=== PATIENT | male | born 1985 | race Caucasian/White ===

== ENCOUNTER 2019-06-01 23:20 | Emergency (ER) | payer OTHER ==
[2019-06-01] MEDS ORDERED: NA CHLORIDE 0.9% 1,000 ML ONE (23:39)
[2019-06-01] MEDS ORDERED: ONDANSETRON 4 MG/2 ML VIAL ONE (23:42)
[2019-06-01 23:59] LABS: Absolute Lymphocytes (CBC) 0.9 K/uL (0.7-4.9); Basophils % 0.3 % (0-1.3); Hematocrit 44.4 % (39.6-49.0); Lymphocytes % 11.8 % (15.3-44.8); MPV 7.8 fL (7.6-11.3)
[2019-06-02 00:10] LABS: ALT/SGPT 61 U/L (12-78); AST/SGOT 27 U/L (15-37); Albumin 4.3 g/dL (3.4-5.0); Alkaline Phosphatase 78 U/L (45-117); BUN Blood Urea Nitrogen 19 mg/dL (7-18); Bicarbonate 30 mmol/L (21-32); Bilirubin Direct 0.3 mg/dL (0-0.2); Bilirubin Total 1.4 mg/dL (0.2-1.0); Glucose Level 105 mg/dL (74-106); Lipase 111 U/L (73-393); Potassium 3.6 mmol/L (3.5-5.1); Protein, Total 7.8 g/dL (6.4-8.2); Sodium Level 141 mmol/L (136-145)
[2019-06-02 00:57] LABS: Urine Blood NEGATIVE (NEG); Urine Glucose NEGATIVE (NEG); Urine Protein NEGATIVE (NEG); Urine Specific Gravity 1.025 (1.005-1.030)
[2019-06-02 00:59] LABS: Calcium Oxalate Crystals- Ur MODERATE (NONE SEEN); Urine Bacteria <20 /HPF (NONE SEEN); Urine Culture Reflex Order NOT NEEDED; Urine RBC NONE SEEN /HPF (NONE SEEN); Urine Urothelial Cells <5 /HPF (NONE SEEN)
[2019-06-02] MEDS ORDERED: FENTANYL CITR 100 MCG/2 ML ONE (01:16)
--- NOTE | 2019-06-02 01:46 | ER ---
Nurse's Notes [facility] Name: Kain Short Age: 33 yrs Sex: Male : 1985 Arrival Date: 06/01/2019 Time: 23:24 Bed 18 Private MD: Diagnosis: Unspecified renal colic;Lower abdominal pain, unspecified Presentation: 06/01 23:30 Presenting complaint: Left flank pain and N/V/D today. Not tolerating fluids. hb Transition of care: patient was not received from another setting of care. Onset of symptoms was June 01, 2019. Risk Assessment: Do you want to hurt yourself or someone else? Patient reports no desire to harm self or others. Initial Sepsis Screen: Does the patient meet any 2 criteria? No. Patient's initial sepsis screen is negative. Does the patient have a suspected source of infection? No. Patient's initial sepsis screen is negative. Care prior to arrival: None. 23:30 Method Of Arrival: Ambulatory hb 23:30 Acuity: KARTHIK 3 hb Triage Assessment: 23:34 General: Appears in no apparent distress. Behavior is calm, cooperative. Pain: Pain hb currently is 9 out of 10 on a pain scale. Historical: - Allergies: 23:32 Adderall; hb 23:32 Reglan; hb 23:32 tramadol; hb 23:32 Wellbutrin; hb - PMHx: 23:32 Diverticulitis; Kidney stones; hb - PSHx: 23:32 jaw; hb - Immunization history:: Adult Immunizations up to date. - Social history:: Smoking status: Patient reports the use of cigarette tobacco products, denies chronic smoking, but will smoke occasionally. - Ebola Screening: : No symptoms or risks identified at this time. Screenin:33 Abuse screen: Denies threats or abuse. Denies injuries from another. Nutritional hb screening: No deficits noted. Tuberculosis screening: No symptoms or risk factors identified. Fall Risk None identified. Assessment: 23:40 General: Appears in no apparent distress. Behavior is calm, cooperative. Pain: Pain hb currently is 9 out of 10 on a pain scale. Neuro: Level of Consciousness is awake, alert, obeys commands, Oriented to person, place, time, situation. Cardiovascular: Capillary refill < 3 seconds Patient's skin is warm and dry. Respiratory: Airway is patent Respiratory effort is even, unlabored, Respiratory pattern is regular, symmetrical, Breath sounds are clear bilaterally. GI: Reports diarrhea, nausea. : No signs and/or symptoms were reported regarding the genitourinary system. EENT: No signs and/or symptoms were reported regarding the EENT system. Derm: Skin is pink, warm \T\ dry. Musculoskeletal: No signs and/or symptoms reported regarding the musculoskeletal system. 06/02 00:32 Reassessment: Patient appears in no apparent distress at this time. Patient and/or hb family updated on plan of care and expected duration. Pain level reassessed. Patient is alert, oriented x 3, equal unlabored respirations, skin warm/dry/pink. 01:27 Reassessment: Patient appears in no apparent distress at this time. Patient and/or hb family updated on plan of care and expected duration. Pain level reassessed. Patient is alert, oriented x 3, equal unlabored respirations, skin warm/dry/pink. 02:02 Reassessment: Patient appears in no apparent distress at this time. Patient and/or hb family updated on plan of care and expected duration. Pain level reassessed. Patient is alert, oriented x 3, equal unlabored respirations, skin warm/dry/pink. Vital Signs: 06/01 23:32 BP 109 / 68; Pulse 75; Resp 16; Temp 98(O); Pulse Ox 95% on R/A; Weight 58.97 kg; hb Height 5 ft. 7 in. (170.18 cm); Pain 9/10; 06/02 00:44 BP 95 / 63; Pulse 66; Resp 15; Pulse Ox 97% on R/A; Pain 6/10; hb 01:28 BP 94 / 60; Pulse 68; Resp 14; Pulse Ox 100% on R/A; hb 06/01 23:32 Body Mass Index 20.36 (58.97 kg, 170.18 cm) ED Course: 06/01 23:24 Patient arrived in ED. es 23:30 Lori Bose FNP-C is PHCP. snw 23:30 Baldemar Barraza MD is Attending Physician. snw 23:31 Triage completed. hb 23:32 Arm band placed on. hb 23:33 Patient has correct armband on for positive identification. Bed in low position. Call light in reach. 23:35 Angela Lloyd, RN is Primary Nurse. hb 06/02 00:19 CT Stone Protocol In Process Unspecified. EDMS 02:12 No provider procedures requiring assistance completed. IV discontinued, intact, hb bleeding controlled, No redness/swelling at site. Pressure dressing applied. Administered Medications: 06/01 23:49 Drug: NS 0.9% 1000 ml Route: IV; Rate: 1 bolus; Site: left antecubital; hb 06/02 00:42 Follow up: Response: No adverse reaction; IV Status: Completed infusion; IV Intake: hb 1000ml 06/01 23:49 Drug: Zofran 4 mg Route: IVP; Site: left antecubital; hb 06/02 00:39 Follow up: Response: No adverse reaction; Vomiting decreased hb 01:17 Drug: fentaNYL (PF) 25 mcg Route: IVP; Site: left antecubital; hb 01:50 Follow up: Response: No adverse reaction; Pain is decreased hb Intake: 00:42 IV: 1000ml; Total: 1000ml. hb Outcome: 01:45 Discharge ordered by MD. snw 02:12 Discharged to home ambulatory, with significant other. hb 02:12 Condition: stable 02:12 Discharge instructions given to patient, significant other, Instructed on discharge instructions, follow up and referral plans. medication usage, Demonstrated understanding of instructions, follow-up care, medications, Prescriptions given X 2. 02:13 Patient left the ED. hb Signatures: Dispatcher [employer] EDPA Lori Bose, GRINDER OPERATOR TOOL-C GRINDER OPERATOR TOOL-CsnJeannie Mosley Heather, RN RN hb Corrections: (The following items were deleted from the chart) 06/01 23:34 23:34 GI: Reports hb hb
--- NOTE | 2019-06-02 01:46 | EDPHYS ---
Physician Documentation [facility] Name: Kain Short Age: 33 yrs Sex: Male : 1985 Arrival Date: 06/01/2019 Time: 23:24 Bed 18 Private MD: ED Physician Baldemar Barraza HPI: 06/01 23:39 This 33 yrs old Male presents to ER via Ambulatory with complaints of snw Nausea/Vomiting, Flank Pain. 23:39 The patient presents to the emergency department with nausea, vomiting, abdominal pain, snw of the left upper quadrant and left lower quadrant, described as sharp. Onset: The symptoms/episode began/occurred suddenly, today. Possible causes: unknown. The symptoms are aggravated by nothing. Associated signs and symptoms: Pertinent positives: nausea, vomiting. Severity of symptoms: At their worst the symptoms were moderate. The patient has experienced a previous episode. The patient has not recently seen a physician. Historical: - Allergies: 23:32 Adderall; hb 23:32 Reglan; hb 23:32 tramadol; hb 23:32 Wellbutrin; hb - PMHx: 23:32 Diverticulitis; Kidney stones; hb - PSHx: 23:32 jaw; hb - Immunization history:: Adult Immunizations up to date. - Social history:: Smoking status: Patient reports the use of cigarette tobacco products, denies chronic smoking, but will smoke occasionally. - Ebola Screening: : No symptoms or risks identified at this time. ROS: 23:39 Constitutional: Negative for fever, chills, and weight loss, Eyes: Negative for injury, snw pain, redness, and discharge, ENT: Negative for injury, pain, and discharge, Neck: Negative for injury, pain, and swelling, Cardiovascular: Negative for chest pain, palpitations, and edema, Respiratory: Negative for shortness of breath, cough, wheezing, and pleuritic chest pain. 23:39 : Negative for injury, bleeding, discharge, and swelling, MS/Extremity: Negative for injury and deformity, Skin: Negative for injury, rash, and discoloration, Neuro: Negative for headache, weakness, numbness, tingling, and seizure, Psych: Negative for depression, anxiety, suicide ideation, homicidal ideation, and hallucinations. 23:39 Abdomen/GI: Positive for abdominal pain, nausea and vomiting. 23:39 Back: Positive for flank pain, on the left. Exam: 23:37 Constitutional: This is a well developed, well nourished patient who is awake, alert, snw and in no acute distress. Head/Face: Normocephalic, atraumatic. Eyes: Pupils equal round and reactive to light, extra-ocular motions intact. Lids and lashes normal. Conjunctiva and sclera are non-icteric and not injected. Cornea within normal limits. Periorbital areas with no swelling, redness, or edema. ENT: Nares patent. No nasal discharge, no septal abnormalities noted. Tympanic membranes are normal and external auditory canals are clear. Oropharynx with no redness, swelling, or masses, exudates, or evidence of obstruction, uvula midline. Mucous membranes moist. Neck: Trachea midline, no thyromegaly or masses palpated, and no cervical lymphadenopathy. Supple, full range of motion without nuchal rigidity, or vertebral point tenderness. No Meningismus. Chest/axilla: Normal chest wall appearance and motion. Nontender with no deformity. No lesions are appreciated. Cardiovascular: Regular rate and rhythm with a normal S1 and S2. No gallops, murmurs, or rubs. Normal PMI, no JVD. No pulse deficits. Respiratory: Lungs have equal breath sounds bilaterally, clear to auscultation and percussion. No rales, rhonchi or wheezes noted. No increased work of breathing, no retractions or nasal flaring. Skin: Warm, dry with normal turgor. Normal color with no rashes, no lesions, and no evidence of cellulitis. MS/ Extremity: Pulses equal, no cyanosis. Neurovascular intact. Full, normal range of motion. Neuro: Awake and alert, GCS 15, oriented to person, place, time, and situation. Cranial nerves II-XII grossly intact. Motor strength 5/5 in all extremities. Sensory grossly intact. Cerebellar exam normal. Normal gait. Psych: Awake, alert, with orientation to person, place and time. Behavior, mood, and affect are within normal limits. 23:37 Abdomen/GI: Inspection: abdomen appears normal, Bowel sounds: normal, Palpation: mild abdominal tenderness, in the left lower quadrant. 23:37 Back: pain, that is moderate, of the mid back area. Vital Signs: 23:32 BP 109 / 68; Pulse 75; Resp 16; Temp 98(O); Pulse Ox 95% on R/A; Weight 58.97 kg; hb Height 5 ft. 7 in. (170.18 cm); Pain 9/10; 06/02 00:44 BP 95 / 63; Pulse 66; Resp 15; Pulse Ox 97% on R/A; Pain 6/10; hb 01:28 BP 94 / 60; Pulse 68; Resp 14; Pulse Ox 100% on R/A; hb 06/01 23:32 Body Mass Index 20.36 (58.97 kg, 170.18 cm) hb MDM: 06/01 23:42 Patient medically screened. snw 06/02 01:47 Data reviewed: vital signs, nurses notes. Data interpreted: Pulse oximetry: on room air snw is 100 %. Interpretation: normal. Counseling: I had a detailed discussion with the patient and/or guardian regarding: the historical points, exam findings, and any diagnostic results supporting the discharge/admit diagnosis, lab results, radiology results, the need for outpatient follow up, to return to the emergency department if symptoms worsen or persist or if there are any questions or concerns that arise at home. Response to treatment: the patient's symptoms have markedly improved after treatment. Special discussion: Based on the patient's Hx, exam, and Dx evaluation, there is no indication for emergent surgery or inpatient Tx. It is understood by the patient/guardian that if the Sx's persist or worsen they need to return immediately for re-evaluation. Based on the history and exam findings, there is no indication for further emergent testing or inpatient evaluation. I discussed with the patient/guardian the need to see the primary care provider for further evaluation of the symptoms. 06/01 23:33 Order name: Basic Metabolic Panel; Complete Time: 00:12 snw 06/01 23:33 Order name: CBC with Diff; Complete Time: 00:04 snw 06/01 22:33 Order name: Hepatic Function; Complete Time: 00:12 snw 06/01 23:33 Order name: Lipase; Complete Time: 00:12 snw 06/01 23:33 Order name: Urine Microscopic Only; Complete Time: 01:11 snw 06/02 00:31 Order name: Urine Dipstick--Ancillary (enter results); Complete Time: 01:11 mw2 06/01 23:33 Order name: IV Saline Lock; Complete Time: 23:49 snw 06/01 23:33 Order name: Labs collected and sent; Complete Time: 23:49 snw 06/01 23:33 Order name: Urine Dipstick-Ancillary (obtain specimen); Complete Time: 00:25 snw 06/01 23:33 Order name: CT Stone Protocol snw Administered Medications: 06/01 23:49 Drug: NS 0.9% 1000 ml Route: IV; Rate: 1 bolus; Site: left antecubital; hb 06/02 00:42 Follow up: Response: No adverse reaction; IV Status: Completed infusion; IV Intake: hb 1000ml 06/01 23:49 Drug: Zofran 4 mg Route: IVP; Site: left antecubital; hb 06/02 00:39 Follow up: Response: No adverse reaction; Vomiting decreased hb 01:17 Drug: fentaNYL (PF) 25 mcg Route: IVP; Site: left antecubital; hb 01:50 Follow up: Response: No adverse reaction; Pain is decreased hb Disposition: 07:50 Co-signature as Attending Physician, Baldemar Barraza MD I agree with the assessment and jay plan of care. Disposition: 06/02/19 01:45 Discharged to Home. Impression: Unspecified renal colic, Lower abdominal pain, unspecified. - Condition is Stable. - Discharge Instructions: Abdominal Pain, Adult, Kidney Stones, Renal Colic, Dietary Guidelines to Help Prevent Kidney Stones, Rehydration, Adult, [place] Diet. - Prescriptions for Diclofenac Sodium 75 mg Oral Tablet Sustained Release - take 1 tablet by ORAL route 2 times per day; 30 tablet. promethazine 25 mg Oral Tablet - take 1 tablet by ORAL route every 6 hours As needed; 20 tablet. - Work release form, Medication Reconciliation Form, Thank You Letter, Antibiotic Education, Prescription Opioid Use form. - Follow up: Emergency Department; When: As needed; Reason: Worsening of condition. Follow up: Private Physician; When: 2 - 3 days; Reason: Recheck today's complaints, Continuance of care, Re-evaluation by your physician. Signatures: Dispatcher [employer] Baldemar Steward MD MD cha Therrien, Shelly, REGULATORY SUBMISSIONS ASSOCIATE-C REGULATORY SUBMISSIONS ASSOCIATE-Rozw Angela Lloyd, RN RN Corrections: (The following items were deleted from the chart) 02:13 01:45 06/02/2019 01:45 Discharged to Home. Impression: Unspecified renal colic; Lower hb abdominal pain, unspecified. Condition is Stable. Forms are Medication Reconciliation Form, Thank You Letter, Antibiotic Education, Prescription Opioid Use. Follow up: Emergency Department; When: As needed; Reason: Worsening of condition. Follow up: Private Physician; When: 2 - 3 days; Reason: Recheck today's complaints, Continuance of care, Re-evaluation by your physician. snw
[2019-06-02 07:28] VITALS: TEMP 98
[2019-06-02 07:31] VITALS: BP 94/60; O2SAT 100
--- NOTE | 2019-06-02 12:23 | RAD REPORT ---
EXAM DESCRIPTION: CT - Stone Protocol - 06/02/2019 6:03 am CLINICAL HISTORY: 33 years Male FLANK PAIN TECHNIQUE: Contiguous axial images obtained through the abdomen and pelvis without IV contrast. Gissel nal and sagittal reformatted images provided. This CT exam was performed according to our departmental dose-optimization program, which includes on e or more of the following dose reduction techniques: automated exposure control, adjustment of the m A and/or kV according to patient size, and/or use of iterative reconstruction technique. COMPARISON: No prior exams provided for comparison. FINDINGS: There are no renal, ureteral, or bladder calculi. There is no hydronephrosis or perinephri c stranding on either side. The appendix is normal. There is no bowel inflammation, obstruction, free intraperitoneal air, or asc ites. The lung bases, unenhanced liver, biliary tree, gallbladder, pancreas, spleen, adrenal glands, kidney s, urinary bladder, and osseous structures are normal. IMPRESSION: No urolithiasis or appendicitis. No acute abdominal or pelvic findings. Electronically signed by: Rebecca Crump MD 06/02/2019 12:46 AM SUGARCANE RESEARCH TECHNICIAN Due to temporary technical issues with the PACS/Fluency reporting system, reports are being signed by the in house radiologist as a courtesy to ensure prompt reporting. The interpreting radiologist is f ully responsible for the content of the report.
== END 2019-06-02 02:13 | disposition home or self-care (01) ==
LOC: ER 23:20
DX: N23 Unspecified renal colic (principal); Z88.6 Allergy status to analgesic agent; Z88.8 Allergy status to other drugs, medicaments and biological substances
CPT/HCPCS: 96361; 85025; 80048; 36415; 80076; 83690; 76377; 74176; 96375; 96374; 99283; J3010; J7030; J2405; 81003; 81015

== ENCOUNTER 2019-06-20 13:29 | Emergency (ER) | payer OTHER ==
--- NOTE | 2019-06-20 13:46 | EDPHYS ---
Physician Documentation [facility] Name: Kain Short Age: 33 yrs Sex: Male : 1985 Arrival Date: 06/20/2019 Time: 13:30 Bed 24 Private MD: ED Physician Juni Bull HPI: 06/20 13:43 This 33 yrs old Male presents to ER via Ambulatory with complaints of pm1 Toothache. 13:43 The patient presents with pain. The problem is located in the lower right second molar pm1 and lower right third molar. Onset: The symptoms/episode began/occurred 2 day(s) ago. Duration: The symptoms are continuous, Ongoing dental pain for multiple months, worse the past 2 days. Modifying factors: The symptoms are alleviated by nothing. Associated signs and symptoms: Pertinent positives: nausea, pain, Pertinent negatives: dysphagia, fever, inability to eat, swelling, vomiting. Severity of symptoms: in the emergency department the symptoms are actually worse. The patient has not experienced similar symptoms in the past. The patient has not recently seen a physician. Historical: - Allergies: 13:30 Adderall; hb 13:30 Reglan; hb 13:30 tramadol; hb 13:30 Wellbutrin; hb - Home Meds: 13:30 None [Active]; hb - PMHx: 13:30 Diverticulitis; Kidney stones; hb - PSHx: 13:30 jaw; hb - Immunization history:: Adult Immunizations up to date. - Coronavirus screen:: The patient has NOT traveled to [employer], [place], or [place] in the past 14 days. The patient has NOT had contact with known/suspected case of Coronavirus? Proceed with normal triage procedures. - Social history:: Smoking status: Patient reports the use of cigarette tobacco products, denies chronic smoking, but will smoke occasionally. - Ebola Screening: : No symptoms or risks identified at this time. ROS: 13:43 Constitutional: Negative for fever, chills, and weight loss, Eyes: Negative for injury, pm1 pain, redness, and discharge. 13:43 Neck: Negative for injury, pain, and swelling, Cardiovascular: Negative for chest pain, palpitations, and edema, Respiratory: Negative for shortness of breath, cough, wheezing, and pleuritic chest pain. 13:43 Back: Negative for injury and pain, : Negative for injury, bleeding, discharge, and swelling, MS/Extremity: Negative for injury and deformity, Skin: Negative for injury, rash, and discoloration, Neuro: Negative for headache, weakness, numbness, tingling, and seizure. 13:43 ENT: Positive for dental pain, Negative for sore throat, difficulty swallowing, difficulty handling secretions, hoarseness. 13:43 Abdomen/GI: Positive for nausea, Negative for abdominal pain, vomiting, diarrhea. Exam: 13:43 Constitutional: This is a well developed, well nourished patient who is awake, alert, pm1 and in no acute distress. Head/Face: Normocephalic, atraumatic. 13:43 Neck: Trachea midline, no thyromegaly or masses palpated, and no cervical lymphadenopathy. Supple, full range of motion without nuchal rigidity, or vertebral point tenderness. No Meningismus. Chest/axilla: Normal chest wall appearance and motion. Nontender with no deformity. No lesions are appreciated. Cardiovascular: Regular rate and rhythm with a normal S1 and S2. No gallops, murmurs, or rubs. Normal PMI, no JVD. No pulse deficits. Respiratory: Lungs have equal breath sounds bilaterally, clear to auscultation and percussion. No rales, rhonchi or wheezes noted. No increased work of breathing, no retractions or nasal flaring. Back: No spinal tenderness. No costovertebral tenderness. Full range of motion. Skin: Warm, dry with normal turgor. Normal color with no rashes, no lesions, and no evidence of cellulitis. MS/ Extremity: Pulses equal, no cyanosis. Neurovascular intact. Full, normal range of motion. 13:43 ENT: Mouth: is normal, no abscess, no drooling, (-) tongue elevation (-) trismus Dental exam: pain, specifically in the lower right second molar (#31) and lower right third molar (#32), decayed and worn to the gum line. 13:43 Neuro: Orientation: is normal, Motor: moves all fours, Gait: is steady, at a normal pace, without difficulty. Vital Signs: 13:30 BP 98 / 66; Pulse 65; Resp 16; Temp 98.2; Pulse Ox 98% on R/A; Weight 58.06 kg; Height hb 5 ft. 7 in. (170.18 cm); Pain 10/10; 14:00 BP 105 / 64; Pulse 72; Pulse Ox 100% on R/A; vc 13:30 Body Mass Index 20.05 (58.06 kg, 170.18 cm) hb MDM: 13:38 Patient medically screened. pm1 13:43 Data reviewed: vital signs. Data interpreted: Pulse oximetry: on room air is 98 %. pm1 Interpretation: normal. Counseling: I had a detailed discussion with the patient and/or guardian regarding: the historical points, exam findings, and any diagnostic results supporting the discharge/admit diagnosis, the need for outpatient follow up, for definitive care, a dentist, to return to the emergency department if symptoms worsen or persist or if there are any questions or concerns that arise at home. Administered Medications: 14:03 Drug: Tylenol #3 (300 mg-30 mg) 2 tabs Route: PO; vc 14:05 Follow up: Response: Medication administered at discharge. vc Disposition: 14:17 Co-signature as Attending Physician, Juni Bull MD. rn Disposition: 06/20/19 13:45 Discharged to Home. Impression: Dental caries. - Condition is Stable. - Discharge Instructions: Dental Pain. - Prescriptions for Augmentin 875- 125 mg Oral Tablet - take 1 tablet by ORAL route every 12 hours for 10 days; 20 tablet. Tylenol- Codeine #3 300-30 mg Oral Tablet - take 2 tablets by ORAL route every 6 hours As needed; 20 tablet. - Medication Reconciliation Form, Thank You Letter, Antibiotic Education, Prescription Opioid Use, Family Work Release form. - Follow up: Emergency Department; When: As needed; Reason: Worsening of condition. Follow up: Private Physician; When: 2 - 3 days; Reason: Recheck today's complaints, Continuance of care, Re-evaluation by your physician. - Problem is new. - Symptoms have improved. Signatures: Juni Bull MD MD rn Marinas, Patrick, CLARKE COLLAR SHAPER OPERATOR pm1 Angela Lloyd RN RN hb Calcote, Vanessa, RN RN vc Corrections: (The following items were deleted from the chart) 14:16 13:45 06/20/2019 13:45 Discharged to Home. Impression: Dental caries. Condition is vc Stable. Forms are Medication Reconciliation Form, Thank You Letter, Antibiotic Education, Prescription Opioid Use. Follow up: Emergency Department; When: As needed; Reason: Worsening of condition. Follow up: Private Physician; When: 2 - 3 days; Reason: Recheck today's complaints, Continuance of care, Re-evaluation by your physician. Problem is new. Symptoms have improved. pm1
--- NOTE | 2019-06-20 13:46 | ER ---
Nurse's Notes [facility] Name: Kain Short Age: 33 yrs Sex: Male : 1985 Arrival Date: 06/20/2019 Time: 13:30 Bed 24 Private MD: Diagnosis: Dental caries Presentation: 06/20 13:28 Presenting complaint: Right lower molar pain that radiates to right side of face and hb nausea x 2 days. Transition of care: patient was not received from another setting of care. Onset of symptoms was June 19, 2019. Risk Assessment: Do you want to hurt yourself or someone else? Patient reports no desire to harm self or others. Initial Sepsis Screen: Does the patient meet any 2 criteria? No. Patient's initial sepsis screen is negative. Does the patient have a suspected source of infection? No. Patient's initial sepsis screen is negative. Care prior to arrival: None. 13:28 Method Of Arrival: Ambulatory hb 13:28 Acuity: KARTHIK 4 hb Triage Assessment: 13:44 General: Appears in no apparent distress. uncomfortable, Behavior is calm, cooperative, vc appropriate for age. 13:44 EENT: Reports pain in lower right third molar (#32) and lower right second molar (#31). vc Historical: - Allergies: 13:30 Adderall; hb 13:30 Reglan; hb 13:30 tramadol; hb 13:30 Wellbutrin; hb - Home Meds: 13:30 None [Active]; hb - PMHx: 13:30 Diverticulitis; Kidney stones; hb - PSHx: 13:30 jaw; hb - Immunization history:: Adult Immunizations up to date. - Coronavirus screen:: The patient has NOT traveled to [place], [place], or [place] in the past 14 days. The patient has NOT had contact with known/suspected case of Coronavirus? Proceed with normal triage procedures. - Social history:: Smoking status: Patient reports the use of cigarette tobacco products, denies chronic smoking, but will smoke occasionally. - Ebola Screening: : No symptoms or risks identified at this time. Screenin:36 Abuse screen: Denies threats or abuse. Nutritional screening: No deficits noted. vc Tuberculosis screening: No symptoms or risk factors identified. Fall Risk None identified. Assessment: 13:45 General: Appears in no apparent distress. uncomfortable. Pain: Complains of pain in vc mouth and lower right third molar and lower right second molar. Neuro: Level of Consciousness is awake, alert, obeys commands. Cardiovascular: Capillary refill < 3 seconds Patient's skin is warm and dry. Respiratory: Respiratory effort is even, unlabored, Respiratory pattern is regular, symmetrical. GI: No signs and/or symptoms were reported involving the gastrointestinal system. : No signs and/or symptoms were reported regarding the genitourinary system. EENT: No signs and/or symptoms were reported regarding the EENT system. Derm: No signs and/or symptoms reported regarding the dermatologic system. Musculoskeletal: Circulation, motion, and sensation intact. Range of motion: intact in all extremities. Vital Signs: 13:30 BP 98 / 66; Pulse 65; Resp 16; Temp 98.2; Pulse Ox 98% on R/A; Weight 58.06 kg; Height hb 5 ft. 7 in. (170.18 cm); Pain 10/10; 14:00 BP 105 / 64; Pulse 72; Pulse Ox 100% on R/A; vc 13:30 Body Mass Index 20.05 (58.06 kg, 170.18 cm) hb ED Course: 13:29 Triage completed. hb 13:30 Patient arrived in ED. as 13:30 Arm band placed on. hb 13:38 Rory Coats NP is PHCP. pm1 13:38 Juni Bull MD is Attending Physician. pm1 13:44 Naomi Gao, EDGAR is Primary Nurse. vc 13:45 Patient has correct armband on for positive identification. vc 15:38 No provider procedures requiring assistance completed. Patient did not have IV access vc during this emergency room visit. Administered Medications: 14:03 Drug: Tylenol #3 (300 mg-30 mg) 2 tabs Route: PO; vc 14:05 Follow up: Response: Medication administered at discharge. vc Outcome: 13:45 Discharge ordered by . pm1 14:15 Discharged to home ambulatory. vc 14:15 Condition: good 14:15 Discharge instructions given to patient, Instructed on discharge instructions, follow up and referral plans. no drinking with medication, no driving heavy equipment, medication usage, Demonstrated understanding of instructions, follow-up care, medications, Prescriptions given X 1. 14:16 Patient left the ED. vc Signatures: Hilary Saravia Patrick, ORDNANCE TRUCK INSTALLATION MECHANIC ORDNANCE TRUCK INSTALLATION MECHANIC pm1 Angela Lloyd, RN RN hb Naomi Gao, EDGAR RN vc
[2019-06-20] MEDS ORDERED: CODEINE 30MG/APAP 300MG TAB ONE (14:02)
[2019-06-20 14:24] VITALS: BP 98/66; TEMP 98.2; O2SAT 98
== END 2019-06-20 14:16 | disposition home or self-care (01) ==
LOC: ER 13:29
DX: K02.9 Dental caries, unspecified (principal); Z72.0 Tobacco use; Z88.5 Allergy status to narcotic agent; Z88.6 Allergy status to analgesic agent; Z88.8 Allergy status to other drugs, medicaments and biological substances
CPT/HCPCS: 99283

== ENCOUNTER 2019-06-30 12:05 | Emergency (ER) | payer OTHER ==
[2019-06-30] MEDS ORDERED: KETOROLAC 30 MG/ML INJ ONE (12:34)
--- NOTE | 2019-06-30 13:18 | RAD REPORT ---
EXAM DESCRIPTION: RAD - Chest Pa And Lat (2 Views) - 06/30/2019 1:12 pm CLINICAL HISTORY: CHEST PAIN Chest pain. COMPARISON: Stone Protocol dated 06/02/2019 FINDINGS: The lungs are clear. The heart is normal in size. No displaced fractures. IMPRESSION: No acute or concerning finding suspected.
--- NOTE | 2019-06-30 13:34 | EDPHYS ---
Physician Documentation [facility] Name: Kain Short Age: 33 yrs Sex: Male : 1985 Arrival Date: 06/30/2019 Time: 12:09 Bed 14 Private MD: ED Physician Catalino Clayton HPI: 06/30 12:20 This 33 yrs old Male presents to ER via Unassigned with complaints of Chest tw4 Pain, Side Pain. 12:20 The patient or guardian reports chest pain that is located primarily in the anterior tw4 chest wall, bilaterally. The pain radiates to left back. Associated signs and symptoms: Pertinent positives: cough. The chest pain is described as sharp, stabbing. Duration: The patient or guardian reports multiple episodes, that wax and wane. Modifying factors: The symptoms are alleviated by nothing. the symptoms are aggravated by cough, deep breath, movement, palpation of area. Severity of pain: At its worst the pain was moderate in the emergency department the pain has improved mildly. The patient has experienced a previous episode. Historical: - Allergies: 12:27 Adderall; ph 12:27 Reglan; ph 12:27 tramadol; ph 12:27 Wellbutrin; ph - PMHx: 12:27 Diverticulitis; Kidney stones; ph - PSHx: 12:27 jaw; ph - Immunization history:: Adult Immunizations unknown. - Coronavirus screen:: The patient has NOT traveled to [place] in the past 14 days. The patient has NOT had contact with known/suspected case of Coronavirus?. - Social history:: Smoking status: Patient reports the use of cigarette tobacco products, denies chronic smoking, but will smoke occasionally. - Ebola Screening: : No symptoms or risks identified at this time. ROS: 12:20 Constitutional: Negative for fever, chills, and weight loss, Eyes: Negative for injury, tw4 pain, redness, and discharge, ENT: Negative for injury, pain, and discharge, Abdomen/GI: Negative for abdominal pain, nausea, vomiting, diarrhea, and constipation, Back: Negative for injury and pain, MS/Extremity: Negative for injury and deformity, Skin: Negative for injury, rash, and discoloration, Neuro: Negative for headache, weakness, numbness, tingling, and seizure. 12:20 Cardiovascular: Positive for chest pain, with cough, with movement, Negative for edema, orthopnea, palpitations, paroxysmal nocturnal dyspnea. 12:20 Respiratory: Positive for cough, Negative for dyspnea on exertion, hemoptysis, orthopnea, pleurisy. Exam: 13:29 Constitutional: This is a well developed, well nourished patient who is awake, alert, tw4 and in no acute distress. Head/Face: Normocephalic, atraumatic. ENT: Nares patent. No nasal discharge, no septal abnormalities noted. Tympanic membranes are normal and external auditory canals are clear. Oropharynx with no redness, swelling, or masses, exudates, or evidence of obstruction, uvula midline. Mucous membranes moist. Cardiovascular: Regular rate and rhythm with a normal S1 and S2. No gallops, murmurs, or rubs. Normal PMI, no JVD. No pulse deficits. Respiratory: Lungs have equal breath sounds bilaterally, clear to auscultation and percussion. No rales, rhonchi or wheezes noted. No increased work of breathing, no retractions or nasal flaring. Abdomen/GI: Soft, non-tender, with normal bowel sounds. No distension or tympany. No guarding or rebound. No evidence of tenderness throughout. Back: No spinal tenderness. No costovertebral tenderness. Full range of motion. Skin: Warm, dry with normal turgor. Normal color with no rashes, no lesions, and no evidence of cellulitis. MS/ Extremity: Pulses equal, no cyanosis. Neurovascular intact. Full, normal range of motion. 13:29 Chest/axilla: Inspection: normal, Palpation: 13:29 Chest/axilla: Palpation: tenderness, that is moderate, of the anterior aspect of right upper chest, anterior aspect of left upper chest, right breast and left breast, that totally reproduces the patient's complaints. Vital Signs: 12:25 BP 104 / 70; Pulse 63; Resp 18; Temp 98.0; Pulse Ox 99% on R/A; Weight 54.43 kg; Height ph 5 ft. 7 in. (170.18 cm); 13:30 BP 116 / 76; Pulse 63; Resp 18; Temp 97.8; Pulse Ox 99% on R/A; ph 12:25 Body Mass Index 18.79 (54.43 kg, 170.18 cm) ph MDM: 12:15 Patient medically screened. tw4 13:30 Differential diagnosis: chest wall pain, costochondritis, esophagitis, pericarditis, tw4 pleurisy, pneumonia. HEART Score: History: Slightly Suspicious (0), ECG: Normal (0), Age: < or = 45 years (0), Risk Factors: No Risk Factors Known (0), Troponin: Total Score = 0. Data reviewed: vital signs, nurses notes, EKG, radiologic studies, plain films. Counseling: I had a detailed discussion with the patient and/or guardian regarding: the historical points, exam findings, and any diagnostic results supporting the discharge/admit diagnosis, radiology results. Medication response: Toradol relieved patient's pain. The symptoms have resolved. Response to treatment: the patient's symptoms have resolved after treatment, and as a result, I will discharge patient. Special discussion: Based on the patient's history, exam, and Dx evaluation, there is no indication for emergent intervention or inpatient Tx. It is understood by the patient/guardian that if the Sx's persist or worsen they need to return immediately for re-evaluation. I discussed with the patient/guardian in detail that at this point there is no indication for admission to the hospital. It is understood, however, that if the symptoms persist or worsen the patient needs to return immediately for re-evaluation. 06/30 12:20 Order name: Chest Pa And Lat (2 Views) XRAY tw4 06/30 12:20 Order name: EKG; Complete Time: 12:21 tw4 EC:29 Rate is 75 beats/min. Rhythm is regular. QRS [place] is Normal. SD interval is normal. QRS tw4 interval is normal. QT interval is normal. No Q waves. No ST changes noted. Clinical impression: Normal ECG. Interpreted by me. Reviewed by me. Administered Medications: 13:20 Drug: TORadol 60 mg Route: IM; Site: left deltoid; ph 13:36 Follow up: Response: No adverse reaction ph Disposition: 06/30/19 13:33 Discharged to Home. Impression: Chondrocostal junction syndrome [Tietze]. - Condition is Stable. - Discharge Instructions: Nonspecific Chest Pain, Chest Wall Pain, Costochondritis. - Prescriptions for Ibuprofen 800 mg Oral Tablet - take 1 tablet by ORAL route every 8 hours As needed take with food; 30 tablet. - Medication Reconciliation Form, Thank You Letter, Antibiotic Education, Prescription Opioid Use form. - Follow up: Private Physician; When: Upon discharge from the Emergency Department; Reason: If symptoms return, Recheck today's complaints, Continuance of care, Re-evaluation by your physician. - Problem is new. - Symptoms have improved. Signatures: Dispatcher [employer] Alanna Lamas RN RN ph Wadley, Terrence, MD MD tw4 Corrections: (The following items were deleted from the chart) 13:30 12:20 Constitutional: This is a well developed, well nourished patient who is awake, tw4 alert, and in no acute distress. Head/Face: Normocephalic, atraumatic. Chest/axilla: Normal chest wall appearance and motion. Nontender with no deformity. No lesions are appreciated. Cardiovascular: Regular rate and rhythm with a normal S1 and S2. No gallops, murmurs, or rubs. Normal PMI, no JVD. No pulse deficits. Respiratory: Lungs have equal breath sounds bilaterally, clear to auscultation and percussion. No rales, rhonchi or wheezes noted. No increased work of breathing, no retractions or nasal flaring. Abdomen/GI: Soft, non-tender, with normal bowel sounds. No distension or tympany. No guarding or rebound. No evidence of tenderness throughout. Back: No spinal tenderness. No costovertebral tenderness. Full range of motion. MS/ Extremity: Pulses equal, no cyanosis. Neurovascular intact. Full, normal range of motion. Neuro: Awake and alert, GCS 15, oriented to person, place, time, and situation. Cranial nerves II-XII grossly intact. Motor strength 5/5 in all extremities. Sensory grossly intact. Cerebellar exam normal. Normal gait. tw4 13:33 13:33 06/30/2019 13:33 Discharged to Home. Impression: Chondrocostal junction syndrome tw4 [Taratztrish]. Condition is Stable. Forms are Medication Reconciliation Form, Thank You Letter, Antibiotic Education, Prescription Opioid Use. Follow up: Private Physician; When: Upon discharge from the Emergency Department; Reason: If symptoms return, Recheck today's complaints, Continuance of care, Re-evaluation by your physician. tw4 13:54 13:33 06/30/2019 13:33 Discharged to Home. Impression: Chondrocostal junction syndrome ph [Misbah]. Condition is Stable. Forms are Medication Reconciliation Form, Thank You Letter, Antibiotic Education, Prescription Opioid Use. Follow up: Private Physician; When: Upon discharge from the Emergency Department; Reason: If symptoms return, Recheck today's complaints, Continuance of care, Re-evaluation by your physician. Problem is new. Symptoms have improved. tw4
--- NOTE | 2019-06-30 13:34 | ER ---
Nurse's Notes [facility] Name: Kain Short Age: 33 yrs Sex: Male : 1985 Arrival Date: 06/30/2019 Time: 12:09 Bed 14 Private MD: Diagnosis: Chondrocostal junction syndrome [Tietze] Presentation: 06/30 12:24 Presenting complaint: Patient states: Sharp mid-sternal chest pain, worse w/ movement ph and L flank pain that began this morning, also reports cough, denies SOB, N/V/D. Transition of care: patient was not received from another setting of care. Onset of symptoms was June 30, 2019. Risk Assessment: Do you want to hurt yourself or someone else? Patient reports no desire to harm self or others. Initial Sepsis Screen: Does the patient meet any 2 criteria? No. Patient's initial sepsis screen is negative. Does the patient have a suspected source of infection? No. Patient's initial sepsis screen is negative. Care prior to arrival: None. 12:24 Method Of Arrival: Ambulatory ph 12:24 Acuity: KARTHIK 4 ph Historical: - Allergies: 12:27 Adderall; ph 12:27 Reglan; ph 12:27 tramadol; ph 12:27 Wellbutrin; ph - PMHx: 12:27 Diverticulitis; Kidney stones; ph - PSHx: 12:27 jaw; ph - Immunization history:: Adult Immunizations unknown. - Coronavirus screen:: The patient has NOT traveled to [place] in the past 14 days. The patient has NOT had contact with known/suspected case of Coronavirus?. - Social history:: Smoking status: Patient reports the use of cigarette tobacco products, denies chronic smoking, but will smoke occasionally. - Ebola Screening: : No symptoms or risks identified at this time. Screenin:50 Abuse screen: Denies threats or abuse. Denies injuries from another. Nutritional ph screening: No deficits noted. Tuberculosis screening: No symptoms or risk factors identified. Fall Risk None identified. Assessment: 12:45 General: Appears in no apparent distress. comfortable, slender, Behavior is calm, ph cooperative, appropriate for age, Denies fever, feeling ill. Pain: Complains of pain in mid-sternal area Pain radiates to anterior aspect of right upper chest and anterior aspect of left upper chest Quality of pain is described as sharp, stabbing, Pain began 4 hours ago. Neuro: Level of Consciousness is awake, alert, obeys commands, Oriented to person, place, time, situation. Cardiovascular: Reports chest pain, Denies fatigue, lightheadedness, nausea, palpitations, shortness of breath, Capillary refill < 3 seconds in bilateral fingers Patient's skin is warm and dry. Respiratory: Airway is patent Respiratory effort is even, unlabored, Respiratory pattern is regular, symmetrical. Derm: Skin is intact, Skin is pink, warm \T\ dry. Vital Signs: 12:25 BP 104 / 70; Pulse 63; Resp 18; Temp 98.0; Pulse Ox 99% on R/A; Weight 54.43 kg; Height ph 5 ft. 7 in. (170.18 cm); 13:30 BP 116 / 76; Pulse 63; Resp 18; Temp 97.8; Pulse Ox 99% on R/A; ph 12:25 Body Mass Index 18.79 (54.43 kg, 170.18 cm) ph ED Course: 12:09 Patient arrived in ED. ag5 12:15 Catalino Clayton MD is Attending Physician. tw4 12:23 Alanna Cohen, EDGAR is Primary Nurse. ph 12:25 Triage completed. ph 13:07 Chest Pa And Lat (2 Views) XRAY In Process Unspecified. EDMS 13:30 Patient has correct armband on for positive identification. Bed in low position. Call ph light in reach. Side rails up X 1. Pulse ox on. NIBP on. 13:50 Arm band placed on. ph 13:51 No provider procedures requiring assistance completed. Patient did not have IV access ph during this emergency room visit. Patient maintains SpO2 saturation greater than 95% on room air. Administered Medications: 13:20 Drug: TORadol 60 mg Route: IM; Site: left deltoid; ph 13:36 Follow up: Response: No adverse reaction ph Outcome: 13:33 Discharge ordered by . tw4 13:52 Discharged to home ambulatory, with significant other. ph 13:52 Condition: good 13:52 Discharge instructions given to patient, Instructed on discharge instructions, follow up and referral plans. medication usage, Demonstrated understanding of instructions, follow-up care, medications, Prescriptions given X 1. 13:54 Patient left the ED. ph Signatures: Dispatcher [employer] Alanna Lamas RN RN Catalino Corona MD MD tw4 Juan York ag5
[2019-06-30 15:08] VITALS: BP 104/70; TEMP 98; O2SAT 99
--- NOTE | 2019-06-30 15:24 | EKG ---
Test Date: 2019-06-30 Test Time: 12:48:54 Handle Assembler: HENRRY MEASUREMENT RESULTS: Intervals: Rate: 75 LA: 138 QRSD: 102 QT: 406 QTc: 453 [place]: P: 25 LA: 138 QRS: 40 T: 37 INTERPRETIVE STATEMENTS: Normal sinus rhythm Normal ECG No previous ECG available for comparison Electronically Signed On 06-30-19 15:23:58 PUBLIC ADDRESS SYSTEM OPERATOR by Caesar Bey
== END 2019-06-30 13:54 | disposition home or self-care (01) ==
LOC: ER 12:05
DX: M94.0 Chondrocostal junction syndrome [Tietze] (principal); F17.210 Nicotine dependence, cigarettes, uncomplicated; Z88.6 Allergy status to analgesic agent; Z88.8 Allergy status to other drugs, medicaments and biological substances
CPT/HCPCS: 71046; 93005; 96372; 99284

== ENCOUNTER 2019-07-05 14:01 | Emergency (ER) | payer OTHER ==
[2019-07-05 15:28] LABS: Absolute Lymphocytes (CBC) 1.6 K/uL (0.7-4.9); Basophils % 0.5 % (0-1.3); Hematocrit 41.8 % (39.6-49.0); Lymphocytes % 17.9 % (15.3-44.8); MPV 7.7 fL (7.6-11.3); RBC Red Blood Cell Count 4.83 M/uL (4.33-5.43)
[2019-07-05 15:44] LABS: ALT/SGPT 19 U/L (12-78); AST/SGOT 18 U/L (15-37); Albumin 4.4 g/dL (3.4-5.0); Alkaline Phosphatase 65 U/L (45-117); BUN Blood Urea Nitrogen 18 mg/dL (7-18); Bicarbonate 23 mmol/L (21-32); Bilirubin Direct 0.2 mg/dL (0-0.2); Bilirubin Total 1.1 mg/dL (0.2-1.0); Glucose Level 88 mg/dL (74-106); Lipase 85 U/L (73-393); Potassium 3.6 mmol/L (3.5-5.1); Protein, Total 7.6 g/dL (6.4-8.2); Sodium Level 139 mmol/L (136-145)
[2019-07-05] MEDS ORDERED: KETOROLAC 30 MG/ML INJ ONE (16:02)
[2019-07-05 16:10] LABS: Urine Blood TRACE (NEG); Urine Glucose NEGATIVE (NEG); Urine Protein NEGATIVE (NEG); Urine Specific Gravity 1.025 (1.005-1.030)
--- NOTE | 2019-07-05 16:29 | RAD REPORT ---
EXAM DESCRIPTION: CT - Stone Protocol - 07/05/2019 3:54 pm CLINICAL HISTORY: Abdominal pain. COMPARISON: May 2019 TECHNIQUE: Computed axial tomography of the abdomen pelvis was obtained without oral or IV contrast. Lack of IV and oral contrast limits evaluation of solid organs, bowel, and vessels. Coronal reformat latha images were obtained and reviewed. All CT scans are performed using dose optimization technique as appropriate and may include automated exposure control or mA/KV adjustment according to patient size. FINDINGS: A renal calculus is not seen. An ureteral calculus is not noted. A bladder calculus is not present. The liver, spleen, pancreas and adrenals appear grossly normal There is no evidence of diverticulitis. The appendix appears normal IMPRESSION: Negative for a genitourinary calculus
--- NOTE | 2019-07-05 16:46 | ER ---
Nurse's Notes [facility] Name: Kain Short Age: 33 yrs Sex: Male : 1985 Arrival Date: 07/05/2019 Time: 14:04 Bed 5 Private MD: Diagnosis: Muscle spasm of back Presentation: 07/05 14:19 Presenting complaint: Patient states: L flank pain since 3 weeks ago. Denies fever. ca1 Reports N/V since this morning. Denies urinary symptoms. Transition of care: patient was not received from another setting of care. Onset of symptoms was July 05, 2019. Risk Assessment: Do you want to hurt yourself or someone else? Patient reports no desire to harm self or others. Initial Sepsis Screen: Does the patient meet any 2 criteria? No. Patient's initial sepsis screen is negative. Does the patient have a suspected source of infection? No. Patient's initial sepsis screen is negative. Care prior to arrival: None. 14:19 Method Of Arrival: Ambulatory ca1 14:19 Acuity: KARTHIK 3 ca1 Historical: - Allergies: 14:22 Adderall; ca1 14:22 Reglan; ca1 14:22 tramadol; ca1 14:22 Wellbutrin; ca1 - Home Meds: 14:22 None [Active]; ca1 - PMHx: 14:22 Diverticulitis; Kidney stones; ca1 - PSHx: 14:22 jaw; ca1 - Immunization history:: Adult Immunizations up to date, Flu vaccine is not up to date. - Coronavirus screen:: The patient has NOT traveled to [place] in the past 14 days. The patient has NOT had contact with known/suspected case of Coronavirus?. - Social history:: Smoking status: Patient reports the use of cigarette tobacco products, denies chronic smoking, but will smoke occasionally. - Ebola Screening: : Patient negative for fever greater than or equal to 101.5 degrees Fahrenheit, and additional compatible Ebola Virus Disease symptoms Patient denies exposure to infectious person Patient denies travel to an Ebola-affected area in the 21 days before illness onset No symptoms or risks identified at this time. Screenin:30 Abuse screen: Denies threats or abuse. Denies injuries from another. Nutritional ph screening: No deficits noted. Tuberculosis screening: No symptoms or risk factors identified. Fall Risk None identified. Assessment: 15:30 General: Appears in no apparent distress. comfortable, slender, Behavior is calm, ph cooperative, appropriate for age. Pain: Complains of pain in left flank. Neuro: Level of Consciousness is awake, alert, obeys commands, Oriented to person, place, time, situation. Cardiovascular: Capillary refill < 3 seconds in bilateral fingers Patient's skin is warm and dry. Respiratory: Airway is patent Respiratory effort is even, unlabored, Respiratory pattern is regular, symmetrical. Derm: Skin is intact, is healthy with good turgor, Skin is pink, warm \T\ dry. Musculoskeletal: Circulation, motion, and sensation intact. Range of motion: intact in all extremities. 16:30 Reassessment: Patient appears in no apparent distress at this time. Patient and/or ph family updated on plan of care and expected duration. Pain level reassessed. Patient is alert, oriented x 3, equal unlabored respirations, skin warm/dry/pink. Vital Signs: 14:22 BP 91 / 63; Pulse 68; Resp 17 S; Temp 97.3(TE); Pulse Ox 97% on R/A; Weight 58.97 kg ca1 (R); Height 5 ft. 7 in. (170.18 cm) (R); Pain 9/10; 16:00 BP 104 / 78; Pulse 69; Resp 18; Pulse Ox 99% on R/A; ph 17:00 BP 99 / 78; Pulse 71; Resp 18; Temp 98.0; Pulse Ox 99% on R/A; ph 14:22 Body Mass Index 20.36 (58.97 kg, 170.18 cm) ca1 ED Course: 14:04 Patient arrived in ED. fj1 14:20 Triage completed. ca1 14:22 Mak Gan PA is PHCP. jr8 14:22 Juni Bull MD is Attending Physician. jr8 14:22 Arm band placed on right wrist. ca1 14:28 Alanna Cohen RN is Primary Nurse. ph 15:18 Initial lab(s) drawn, by me, sent to lab. Inserted saline lock: 20 gauge in right jb1 antecubital area, using aseptic technique. Blood collected. 15:30 Patient has correct armband on for positive identification. Bed in low position. Call ph light in reach. Side rails up X 1. Pulse ox on. NIBP on. Door closed. Warm blanket given. 15:54 CT completed. Patient moved back from CT. mw3 15:54 CT Stone Protocol In Process Unspecified. EDMS 17:20 No provider procedures requiring assistance completed. IV discontinued, intact, ph bleeding controlled, No redness/swelling at site. Pressure dressing applied. Administered Medications: 16:14 Drug: TORadol - Ketorolac 15 mg Route: IVP; Site: left antecubital; ph 16:45 Follow up: Response: No adverse reaction; Pain is unchanged, physician notified ph 17:15 Drug: fentaNYL (PF) 50 mcg Route: IVP; Site: left antecubital; iw 17:25 Follow up: Response: No adverse reaction; Pain is decreased ph Outcome: 16:45 Discharge ordered by MD. patino 17:20 Discharged to home ambulatory, with significant other. ph 17:20 Condition: good 17:20 Discharge instructions given to patient, Instructed on discharge instructions, follow up and referral plans. medication usage, Demonstrated understanding of instructions, follow-up care, medications, Prescriptions given X 2. 17:23 Patient left the ED. ph Signatures: Dispatcher [employer] EDMS Nestor Blue jb1 Tanya Tripathi, EDGAR RN iw Mak Gan PA PA jr8 Alanna Cohen RN RN ph Michelle Carpenter mw3 Carla Wahl RN RN [facility] Abdelrahman Hartman fj1
--- NOTE | 2019-07-05 16:47 | EDPHYS ---
Physician Documentation [facility] Name: Kain Short Age: 33 yrs Sex: Male : 1985 Arrival Date: 07/05/2019 Time: 14:04 Bed 5 Private MD: ED Physician Juni Bull HPI: 07/05 16:42 This 33 yrs old Male presents to ER via Ambulatory with complaints of Back jr8 Pain. 16:42 The patient presents with pain that is acute. The symptoms are located in the left jr8 flank, left low back and left mid back. Onset: The symptoms/episode began/occurred acutely, yesterday. The pain radiates to the abdomen. Associated signs and symptoms: The patient has no apparent associated signs or symptoms. The problem was sustained from unknown cause. Modifying factors: The patient symptoms are alleviated by nothing, the patient symptoms are aggravated by movement. Severity of symptoms: At their worst the symptoms were moderate, in the emergency department the symptoms are unchanged. The patient has not experienced similar symptoms in the past. The patient has not recently seen a physician. describes pain as burning sensation . Historical: - Allergies: 14:22 Adderall; ca1 14:22 Reglan; ca1 14:22 tramadol; ca1 14:22 Wellbutrin; ca1 - Home Meds: 14:22 None [Active]; ca1 - PMHx: 14:22 Diverticulitis; Kidney stones; ca1 - PSHx: 14:22 jaw; ca1 - Immunization history:: Adult Immunizations up to date, Flu vaccine is not up to date. - Coronavirus screen:: The patient has NOT traveled to [place] in the past 14 days. The patient has NOT had contact with known/suspected case of Coronavirus?. - Social history:: Smoking status: Patient reports the use of cigarette tobacco products, denies chronic smoking, but will smoke occasionally. - Ebola Screening: : Patient negative for fever greater than or equal to 101.5 degrees Fahrenheit, and additional compatible Ebola Virus Disease symptoms Patient denies exposure to infectious person Patient denies travel to an Ebola-affected area in the 21 days before illness onset No symptoms or risks identified at this time. ROS: 16:42 Eyes: Negative for injury, pain, redness, and discharge, ENT: Negative for injury, jr8 pain, and discharge, Neck: Negative for injury, pain, and swelling, Cardiovascular: Negative for chest pain, palpitations, and edema, Respiratory: Negative for shortness of breath, cough, wheezing, and pleuritic chest pain, Abdomen/GI: Negative for abdominal pain, nausea, vomiting, diarrhea, and constipation, MS/Extremity: Negative for injury and deformity, Skin: Negative for injury, rash, and discoloration, Neuro: Negative for headache, weakness, numbness, tingling, and seizure. 16:42 Back: Positive for pain at rest, pain with movement, flank pain, on the left, radiated pain. Exam: 16:42 Eyes: Pupils equal round and reactive to light, extra-ocular motions intact. Lids and jr8 lashes normal. Conjunctiva and sclera are non-icteric and not injected. Cornea within normal limits. Periorbital areas with no swelling, redness, or edema. ENT: Nares patent. No nasal discharge, no septal abnormalities noted. Tympanic membranes are normal and external auditory canals are clear. Oropharynx with no redness, swelling, or masses, exudates, or evidence of obstruction, uvula midline. Mucous membranes moist. Neck: Trachea midline, no thyromegaly or masses palpated, and no cervical lymphadenopathy. Supple, full range of motion without nuchal rigidity, or vertebral point tenderness. No Meningismus. Cardiovascular: Regular rate and rhythm with a normal S1 and S2. No gallops, murmurs, or rubs. Normal PMI, no JVD. No pulse deficits. Respiratory: Lungs have equal breath sounds bilaterally, clear to auscultation and percussion. No rales, rhonchi or wheezes noted. No increased work of breathing, no retractions or nasal flaring. Abdomen/GI: Soft, non-tender, with normal bowel sounds. No distension or tympany. No guarding or rebound. No evidence of tenderness throughout. Skin: Warm, dry with normal turgor. Normal color with no rashes, no lesions, and no evidence of cellulitis. MS/ Extremity: Pulses equal, no cyanosis. Neurovascular intact. Full, normal range of motion. Neuro: Awake and alert, GCS 15, oriented to person, place, time, and situation. Cranial nerves II-XII grossly intact. Motor strength 5/5 in all extremities. Sensory grossly intact. Cerebellar exam normal. Normal gait. 16:42 Back: pain, that is moderate, of the left low back and left mid back, ROM is painful, normal spinal alignment noted, CVA tenderness, is absent. Vital Signs: 14:22 BP 91 / 63; Pulse 68; Resp 17 S; Temp 97.3(TE); Pulse Ox 97% on R/A; Weight 58.97 kg ca1 (R); Height 5 ft. 7 in. (170.18 cm) (R); Pain 9/10; 16:00 BP 104 / 78; Pulse 69; Resp 18; Pulse Ox 99% on R/A; ph 17:00 BP 99 / 78; Pulse 71; Resp 18; Temp 98.0; Pulse Ox 99% on R/A; ph 14:22 Body Mass Index 20.36 (58.97 kg, 170.18 cm) ca1 MDM: 14:23 Patient medically screened. jr8 16:42 Differential diagnosis: Hydronephrosis Ligament Injury Pyelonephritis ruptured disc, jr8 sprain, Ureterolithiasis vertebral fracture, Herpes zoster, muscle spasm. Data reviewed: vital signs, nurses notes, lab test result(s), radiologic studies, CT scan. Data interpreted: Pulse oximetry: on room air is 97 %. Interpretation: normal. Counseling: I had a detailed discussion with the patient and/or guardian regarding: the historical points, exam findings, and any diagnostic results supporting the discharge/admit diagnosis, lab results, radiology results, the need for outpatient follow up, a family practitioner, to return to the emergency department if symptoms worsen or persist or if there are any questions or concerns that arise at home. Response to treatment: the patient's symptoms have mildly improved after treatment. Special discussion: Based on the patient's Hx, exam, and Dx evaluation, there is no indication for emergent surgery or inpatient Tx. It is understood by the patient/guardian that if the Sx's persist or worsen they need to return immediately for re-evaluation. 07/05 14: Order name: Basic Metabolic Panel; Complete Time: 16:00 07/05 14:23 Order name: CBC with Diff; Complete Time: 15:38 07/05 14: Order name: Creatinine for Radiology; Complete Time: 16:00 07/05 14:23 Order name: Hepatic Function; Complete Time: 16:00 07/05 14:23 Order name: Lipase; Complete Time: 16:00 8 07/05 16:02 Order name: Urine Dipstick--Ancillary (enter results); Complete Time: 16:31 ms 07/05 14:23 Order name: IV Saline Lock; Complete Time: 15:19 jr8 07/05 14:23 Order name: Labs collected and sent; Complete Time: 15:19 jr8 07/05 15:41 Order name: CT Stone Protocol; Complete Time: 16:46 jr8 Administered Medications: 16:14 Drug: TORadol - Ketorolac 15 mg Route: IVP; Site: left antecubital; ph 16:45 Follow up: Response: No adverse reaction; Pain is unchanged, physician notified ph 17:15 Drug: fentaNYL (PF) 50 mcg Route: IVP; Site: left antecubital; iw 17:25 Follow up: Response: No adverse reaction; Pain is decreased ph Disposition: 17:33 Co-signature as Attending Physician, Juni Bull MD. rn Disposition: 07/05/19 16:45 Discharged to Home. Impression: Muscle spasm of back. - Condition is Stable. - Discharge Instructions: Muscle Cramps and Spasms, Back Exercises, Piki-ex-Cxfx, Heat Therapy. - Prescriptions for Ibuprofen 800 mg Oral Tablet - take 1 tablet by ORAL route every 12 hours As needed take with food; 20 tablet. Robaxin 500 mg Oral Tablet - take 2 tablet by ORAL route every 6 hours As needed; 40 tablet. Medrol (Tod) 4 mg Oral Tablets, Dose Pack - take 1 tablet by ORAL route as directed - follow package instructions; 1 packet. - Family Work Release, Medication Reconciliation Form, Thank You Letter, Antibiotic Education, Prescription Opioid Use form. - Follow up: Private Physician; When: 5 - 6 days; Reason: Recheck today's complaints, Continuance of care, Re-evaluation by your physician. - Problem is new. - Symptoms have improved. Signatures: Dispatcher [employer] Tanya Moise, Juni Coffey RN, MD MD rn Roszak, Josh, PA PA jr8 Alanna Cohen RN RN ph Acob, Carla RN EDGAR ca1 Corrections: (The following items were deleted from the chart) 17:23 16:45 07/05/2019 16:45 Discharged to Home. Impression: Muscle spasm of back. Condition ph is Stable. Forms are Medication Reconciliation Form, Thank You Letter, Antibiotic Education, Prescription Opioid Use. Follow up: Private Physician; When: 5 - 6 days; Reason: Recheck today's complaints, Continuance of care, Re-evaluation by your physician. Problem is new. Symptoms have improved. jr8
[2019-07-05] MEDS ORDERED: FENTANYL CITR 100 MCG/2 ML ONE (17:09)
[2019-07-05 17:48] VITALS: BP 91/63; TEMP 97.3; O2SAT 97
== END 2019-07-05 17:23 | disposition home or self-care (01) ==
LOC: ER 14:01
DX: M62.830 Muscle spasm of back (principal); Z88.5 Allergy status to narcotic agent; Z88.6 Allergy status to analgesic agent; Z88.8 Allergy status to other drugs, medicaments and biological substances
CPT/HCPCS: 85025; 80048; 36415; 80076; 81003; 83690; 76377; 74176; 96375; 96374; 99284; J3010

== ENCOUNTER 2019-09-07 12:15 | Emergency (ER) | payer OTHER ==
[2019-09-07 13:02] LABS: Absolute Lymphocytes (CBC) 2.1 K/uL (0.7-4.9); Basophils % 1.1 % (0-1.3); Hematocrit 39.9 % (39.6-49.0); Lymphocytes % 31.1 % (15.3-44.8); MPV 7.9 fL (7.6-11.3)
--- NOTE | 2019-09-07 13:10 | RAD REPORT ---
EXAM DESCRIPTION: US - Abdomen Exam Limited - 09/07/2019 1:00 pm CLINICAL HISTORY: ABD PAIN COMPARISON: No comparisons FINDINGS: The gallbladder demonstrates no gallstones. No pericholecystic fluid or gallbladder wall t hickening. The common bile duct is normal measuring 4 mm. The liver demonstrates no findings of intrahepatic biliary dilatation. IMPRESSION: Unremarkable examination.
[2019-09-07 13:24] LABS: ALT/SGPT 252 U/L (12-78); AST/SGOT 158 U/L (15-37); Albumin 3.7 g/dL (3.4-5.0); Alkaline Phosphatase 88 U/L (45-117); BUN Blood Urea Nitrogen 17 mg/dL (7-18); Bicarbonate 27 mmol/L (21-32); Bilirubin Direct < 0.1 mg/dL (0-0.2); Bilirubin Total 0.3 mg/dL (0.2-1.0); Glucose Level 98 mg/dL (74-106); Lipase 105 U/L (73-393); Potassium 4.1 mmol/L (3.5-5.1); Protein, Total 7.1 g/dL (6.4-8.2); Sodium Level 140 mmol/L (136-145)
[2019-09-07] MEDS ORDERED: NA CHLORIDE 0.9% 1,000 ML ONE (13:28)
[2019-09-07] MEDS ORDERED: SIMETHICONE 80 MG TAB ONE (13:44)
[2019-09-07 13:46] LABS: Urine Blood NEGATIVE (NEG); Urine Glucose NEGATIVE (NEG); Urine Protein NEGATIVE (NEG); Urine Specific Gravity 1.025 (1.005-1.030); Urine pH 7.5 (5.0-7.0)
[2019-09-07 13:46] LABS: Urine Amorphous Sediment 2+ /HPF (NONE SEEN); Urine Bacteria <20 /HPF (NONE SEEN); Urine Culture Reflex Order NOT NEEDED; Urine Mucus 1+ /HPF (NONE SEEN); Urine RBC <5 /HPF (NONE SEEN)
--- NOTE | 2019-09-07 14:15 | EDPHYS ---
Physician Documentation [facility] Name: Kain Short Age: 34 yrs Sex: Male : 1985 Arrival Date: 09/07/2019 Time: 12:17 Bed 18 Private MD: ED Physician Juni Bull HPI: 09/06 13:30 This 34 yrs old Male presents to ER via Ambulatory with complaints of Side snw Pain, Passed Out Prior To Arrival. 13:30 Onset: The symptoms/episode began/occurred acutely. Associated signs and symptoms: The snw patient has no apparent associated signs or symptoms. The patient has not experienced similar symptoms in the past. The patient has not recently seen a physician. Pt states he has been on the same medications x 1 month. Historical: - Allergies: 12:30 Adderall; aa5 12:30 Reglan; aa5 12:30 tramadol; aa5 12:30 Wellbutrin; aa5 - Home Meds: 12:30 hydroxyzine HCl 50 mg Oral tab three times a day as needed [Active]; olanzapine 10 mg aa5 oral tab once daily [Active]; - PMHx: 12:30 Diverticulitis; Kidney stones; Anxiety; Mood disorder; aa5 - PSHx: 12:30 jaw; aa5 - Immunization history:: Adult Immunizations up to date. - Social history:: Smoking status: Patient reports the use of cigarette tobacco products, unknown amount. ROS: 13:30 Constitutional: Negative for fever, chills, and weight loss, Eyes: Negative for injury, snw pain, redness, and discharge, ENT: Negative for injury, pain, and discharge, Neck: Negative for injury, pain, and swelling, Cardiovascular: Negative for chest pain, palpitations, and edema, Respiratory: Negative for shortness of breath, cough, wheezing, and pleuritic chest pain, Back: Negative for injury and pain, : Negative for injury, bleeding, discharge, and swelling, MS/Extremity: Negative for injury and deformity, Skin: Negative for injury, rash, and discoloration, Neuro: Negative for headache, weakness, numbness, tingling, and seizure, Psych: Negative for depression, anxiety, suicide ideation, homicidal ideation, and hallucinations. 13:30 Abdomen/GI: Positive for abdominal pain, of the right upper quadrant and left upper quadrant. Exam: 13:25 Constitutional: This is a well developed, well nourished patient who is awake, alert, snw and in no acute distress. Head/Face: Normocephalic, atraumatic. Eyes: Pupils equal round and reactive to light, extra-ocular motions intact. Lids and lashes normal. Conjunctiva and sclera are non-icteric and not injected. Cornea within normal limits. Periorbital areas with no swelling, redness, or edema. ENT: Nares patent. No nasal discharge, no septal abnormalities noted. Tympanic membranes are normal and external auditory canals are clear. Oropharynx with no redness, swelling, or masses, exudates, or evidence of obstruction, uvula midline. Mucous membranes moist. Neck: Trachea midline, no thyromegaly or masses palpated, and no cervical lymphadenopathy. Supple, full range of motion without nuchal rigidity, or vertebral point tenderness. No Meningismus. Chest/axilla: Normal chest wall appearance and motion. Nontender with no deformity. No lesions are appreciated. Cardiovascular: Regular rate and rhythm with a normal S1 and S2. No gallops, murmurs, or rubs. Normal PMI, no JVD. No pulse deficits. Respiratory: Lungs have equal breath sounds bilaterally, clear to auscultation and percussion. No rales, rhonchi or wheezes noted. No increased work of breathing, no retractions or nasal flaring. Back: No spinal tenderness. No costovertebral tenderness. Full range of motion. Skin: Warm, dry with normal turgor. Normal color with no rashes, no lesions, and no evidence of cellulitis. MS/ Extremity: Pulses equal, no cyanosis. Neurovascular intact. Full, normal range of motion. Neuro: Awake and alert, GCS 15, oriented to person, place, time, and situation. Cranial nerves II-XII grossly intact. Motor strength 5/5 in all extremities. Sensory grossly intact. Cerebellar exam normal. Normal gait. Psych: Awake, alert, with orientation to person, place and time. Behavior, mood, and affect are within normal limits. 13:25 Abdomen/GI: Inspection: abdomen appears normal, Bowel sounds: normal, Palpation: mild abdominal tenderness, in the right upper quadrant and left upper quadrant. Vital Signs: 12:26 BP 109 / 64; Pulse 62; Resp 18 S; Temp 98.7(TE); Pulse Ox 98% on R/A; Weight 54.43 kg aa5 (R); Height 5 ft. 7 in. (170.18 cm) (R); Pain 9/10; 12:57 BP 104 / 63; Pulse 66; Resp 16; Pulse Ox 97% ; bp 14:05 BP 93 / 70; Pulse 60; Resp 16; Pulse Ox 97% ; bp 14:43 BP 106 / 75; Pulse 58; Resp 16; Temp 98.5; Pulse Ox 97% ; bp 12:26 Body Mass Index 18.79 (54.43 kg, 170.18 cm) aa5 MDM: 12:42 Patient medically screened. snw 14:16 Data reviewed: vital signs, nurses notes. Data interpreted: Pulse oximetry: on room air snw is 97 %. Interpretation: normal. Counseling: I had a detailed discussion with the patient and/or guardian regarding: the historical points, exam findings, and any diagnostic results supporting the discharge/admit diagnosis, lab results, radiology results, the need for outpatient follow up, to return to the emergency department if symptoms worsen or persist or if there are any questions or concerns that arise at home. Special discussion: Based on the patient's Hx, exam, and Dx evaluation, there is no indication for emergent surgery or inpatient Tx. It is understood by the patient/guardian that if the Sx's persist or worsen they need to return immediately for re-evaluation. Based on the history and exam findings, there is no indication for further emergent testing or inpatient evaluation. I discussed with the patient/guardian the need to see the primary care provider for further evaluation of the symptoms. 09/06 12:35 Order name: Basic Metabolic Panel; Complete Time: 13:28 snw 09/06 12:35 Order name: CBC with Diff; Complete Time: 13:11 snw 09/06 12:35 Order name: Creatinine for Radiology; Complete Time: 13:24 snw 09/06 12:35 Order name: Hepatic Function; Complete Time: 13:28 snw 09/06 12:35 Order name: Lipase; Complete Time: 13:28 snw 09/06 13:12 Order name: Urine Microscopic Only; Complete Time: 13:56 bp 09/06 12:35 Order name: IV Saline Lock; Complete Time: 12:52 snw 09/06 12:35 Order name: Labs collected and sent; Complete Time: 12:52 snw 09/06 12:35 Order name: US Abdomen Limited; Complete Time: 13:13 snw 09/06 13:31 Order name: Urine Dipstick--Ancillary (enter results); Complete Time: 13:56 em1 09/06 13:12 Order name: Urine Dipstick-Ancillary (obtain specimen); Complete Time: 13:26 snw Administered Medications: 13:12 CANCELLED (Duplicate Order): NS 0.9% 1000 ml IV at 1 bolus Per protocol; 1000 mL bolus bp 13:20 Drug: NS 0.9% 1000 ml Route: IV; Rate: 1 bolus; Site: right antecubital; bp 14:46 Follow up: IV Status: Completed infusion; IV Intake: 1000ml bp 13:40 Drug: Simethicone 240 mg Route: PO; bp 14:45 Follow up: Response: Marked relief of symptoms bp Disposition: 18:24 Co-signature as Attending Physician, Juni Bull MD. rn Disposition: 09/07/19 14:14 Discharged to Home. Impression: Volume depletion, Elevated liver enzymes. - Condition is Stable. - Discharge Instructions: Abdominal Pain, Adult, Rehydration, Adult. - Prescriptions for promethazine 25 mg Oral Tablet - take 1 tablet by ORAL route every 8-10 hours As needed; 6 tablet. - Medication Reconciliation Form, Thank You Letter, Antibiotic Education, Prescription Opioid Use form. - Follow up: Emergency Department; When: As needed; Reason: Worsening of condition. Follow up: Private Physician; When: 2 - 3 days; Reason: Recheck today's complaints, Continuance of care, Re-evaluation by your physician. Signatures: Dispatcher [employer] EDMS Lori Bose, INSURANCE SALES ASSOCIATE-C INSURANCE SALES ASSOCIATE-Csnw Juni Bull MD MD rn Calderon, Audri RN RN aa5 Krystian Freeman RN RN bp Corrections: (The following items were deleted from the chart) 13:12 13:11 NS 0.9% 1000 ml IV at 1 bolus Per protocol; 1000 mL bolus ordered. snw bp 13:14 13:12 Urine Dipstick-Ancillary ordered. bp bp 14:14 14:14 09/07/2019 14:14 Discharged to Home. Impression: Volume depletion. Condition is snw Stable. Forms are Medication Reconciliation Form, Thank You Letter, Antibiotic Education, Prescription Opioid Use. Follow up: Emergency Department; When: As needed; Reason: Worsening of condition. Follow up: Private Physician; When: 2 - 3 days; Reason: Recheck today's complaints, Continuance of care, Re-evaluation by your physician. snw 14:46 14:14 09/07/2019 14:14 Discharged to Home. Impression: Volume depletion; Elevated liver bp enzymes. Condition is Stable. Forms are Medication Reconciliation Form, Thank You Letter, Antibiotic Education, Prescription Opioid Use. Follow up: Emergency Department; When: As needed; Reason: Worsening of condition. Follow up: Private Physician; When: 2 - 3 days; Reason: Recheck today's complaints, Continuance of care, Re-evaluation by your physician. snw
--- NOTE | 2019-09-07 14:15 | ER ---
Nurse's Notes [facility] Name: Kain Short Age: 34 yrs Sex: Male : 1985 Arrival Date: 09/07/2019 Time: 12:17 Bed 18 Private MD: Diagnosis: Volume depletion;Elevated liver enzymes Presentation: 09/06 12:26 Chief complaint: Patient states: upper abd pain and syncopal episode today. Pt reports aa5 nausea, denies vomiting, denies diarrhea. 12:26 Coronavirus screen: Proceed with normal triage. Patient denies a cough. Patient denies aa5 shortness of breath or difficulty breathing. Patient denies measured and/or subjective temperature greater than 100.4F prior to today's visit. Patient denies travel on a cruise ship or to a country the [facility] currently lists as an affected area. Patient denies contact with known and/or suspected case of COVID-19. Ebola Screen: Patient negative for fever greater than or equal to 101.5 degrees Fahrenheit, and additional compatible Ebola Virus Disease symptoms. Initial Sepsis Screen: Does the patient meet any 2 criteria? No. Patient's initial sepsis screen is negative. Does the patient have a suspected source of infection? No. Patient's initial sepsis screen is negative. Risk Assessment: Do you want to hurt yourself or someone else? Patient reports no desire to harm self or others. Onset of symptoms was September 07, 2019. 12:26 Acuity: KARTHIK 3 aa5 12:26 Method Of Arrival: Ambulatory aa5 Triage Assessment: 12:30 General: Appears in no apparent distress. comfortable, Behavior is cooperative, bp appropriate for age, anxious. Pain: Complains of pain in abdomen. EENT: No deficits noted. Neuro: No deficits noted. Cardiovascular: No deficits noted. Respiratory: No deficits noted. GI: No signs and/or symptoms were reported involving the gastrointestinal system. : No signs and/or symptoms were reported regarding the genitourinary system. Derm: No deficits noted. Musculoskeletal: No deficits noted. Historical: - Allergies: 12:30 Adderall; aa5 12:30 Reglan; aa5 12:30 tramadol; aa5 12:30 Wellbutrin; aa5 - Home Meds: 12:30 hydroxyzine HCl 50 mg Oral tab three times a day as needed [Active]; olanzapine 10 mg aa5 oral tab once daily [Active]; - PMHx: 12:30 Diverticulitis; Kidney stones; Anxiety; Mood disorder; aa5 - PSHx: 12:30 jaw; aa5 - Immunization history:: Adult Immunizations up to date. - Social history:: Smoking status: Patient reports the use of cigarette tobacco products, unknown amount. Screenin:30 Abuse screen: Denies threats or abuse. Denies injuries from another. Nutritional bp screening: No deficits noted. Tuberculosis screening: No symptoms or risk factors identified. Fall Risk None identified. Assessment: 12:30 General: SEE TRIAGE NOTE. bp 12:57 Reassessment: PT RETURNED FROM RADIOLOGY. ALL CURRENT STUDIES IN PROCESS. bp 14:06 Reassessment: IVF INFUSING, VS STABLE ON MONITOR. bp 14:43 Reassessment: PT D/C HOME AMBULATORY, DX WITH VOLUME DEPLETION. bp Vital Signs: 12:26 BP 109 / 64; Pulse 62; Resp 18 S; Temp 98.7(TE); Pulse Ox 98% on R/A; Weight 54.43 kg aa5 (R); Height 5 ft. 7 in. (170.18 cm) (R); Pain 9/10; 12:57 BP 104 / 63; Pulse 66; Resp 16; Pulse Ox 97% ; bp 14:05 BP 93 / 70; Pulse 60; Resp 16; Pulse Ox 97% ; bp 14:43 BP 106 / 75; Pulse 58; Resp 16; Temp 98.5; Pulse Ox 97% ; bp 12:26 Body Mass Index 18.79 (54.43 kg, 170.18 cm) aa5 ED Course: 12:17 Patient arrived in ED. ag5 12:26 Krystian Freeman, RN is Primary Nurse. bp 12:26 Arm band placed on Patient placed in an exam room, on a stretcher. aa5 12:30 Patient has correct armband on for positive identification. Bed in low position. Call bp light in reach. Side rails up X2. 12:32 Triage completed. aa5 12:34 Lori Bose FNP-C [facility]. snw 12:34 Juni Bull MD is Attending Physician. snw 12:56 Initial lab(s) drawn, by me, sent to lab. Inserted saline lock: 22 gauge in right lt1 antecubital area, using aseptic technique. 13:00 US Abdomen Limited In Process Unspecified. EDMS 14:43 No provider procedures requiring assistance completed. IV discontinued, intact, bp bleeding controlled, No redness/swelling at site. Pressure dressing applied. Administered Medications: 13:12 CANCELLED (Duplicate Order): NS 0.9% 1000 ml IV at 1 bolus Per protocol; 1000 mL bolus bp 13:20 Drug: NS 0.9% 1000 ml Route: IV; Rate: 1 bolus; Site: right antecubital; bp 14:46 Follow up: IV Status: Completed infusion; IV Intake: 1000ml bp 13:40 Drug: Simethicone 240 mg Route: PO; bp 14:45 Follow up: Response: Marked relief of symptoms bp Intake: 14:46 IV: 1000ml; Total: 1000ml. bp Outcome: 14:14 Discharge ordered by . snw 14:43 Discharged to home ambulatory. bp 14:43 Condition: stable 14:43 Discharge instructions given to patient, Instructed on discharge instructions, follow up and referral plans. medication usage, Demonstrated understanding of instructions, follow-up care, medications, Prescriptions given X 1. 14:46 Patient left the ED. bp Signatures: Dispatcher [employer] EDMS Lori Bose, STITCH BONDER MACHINE OPERATOR HELPER-C STITCH BONDER MACHINE OPERATOR HELPER-Csnw Marina Ruiz, RN RN prosper5 Krystian Freeman RN RN Juan Lopez ag5 Siddiqui, Sheron lt1
[2019-09-07 14:55] VITALS: O2SAT 97
[2019-09-07 14:57] VITALS: BP 106/75; TEMP 98.5
== END 2019-09-07 14:46 | disposition home or self-care (01) ==
LOC: ER 12:15
DX: E86.9 Volume depletion, unspecified (principal); R79.89 Other specified abnormal findings of blood chemistry; F41.9 Anxiety disorder, unspecified; Z72.0 Tobacco use; Z88.5 Allergy status to narcotic agent; Z88.8 Allergy status to other drugs, medicaments and biological substances
CPT/HCPCS: 85025; 80048; 36415; 80076; 83690; 76705; 96360; 99284; J7030; 81003; 81015

== ENCOUNTER 2019-09-14 08:47 | Emergency (ER) | payer OTHER ==
--- NOTE | 2019-09-14 09:02 | EDPHYS ---
Physician Documentation [facility] Name: Kain Short Age: 34 yrs Sex: Male : 1985 Arrival Date: 09/14/2019 Time: 08:48 Bed 20 Private MD: ED Physician Juni Bull HPI: 09/13 08:58 This 34 yrs old Male presents to ER via Unassigned with complaints of Ear rn Pain. 08:58 The patient presents with pain. The complaints affect the right ear. Onset: The rn symptoms/episode began/occurred this morning. Modifying factors: The symptoms are alleviated by nothing, the symptoms are aggravated by pulling on ears. Severity of symptoms: At their worst the symptoms were mild. The patient has not experienced similar symptoms in the past. Reports swimming at beach yesterday, today began with right ear pain, no trauma or drainage. No other symptoms. No fever. No difficulty hearing. . Historical: - Allergies: 09:05 Adderall; ss 09:05 Reglan; ss 09:05 tramadol; ss 09:05 Wellbutrin; ss - PMHx: 09:05 Anxiety; Diverticulitis; Kidney stones; mood disorder; ss - PSHx: 09:05 jaw; ss - Immunization history:: Adult Immunizations up to date. - Social history:: Smoking status: Patient denies any tobacco usage or history of. - Family history:: not pertinent. - Hospitalizations: : No recent hospitalization is reported. ROS: 08:58 Constitutional: Negative for fever, chills, and weight loss, Eyes: Negative for injury, rn pain, redness, and discharge, ENT: + right ear pain Exam: 08:58 Constitutional: This is a well developed, well nourished patient who is awake, alert, rn and in no acute distress. Head/Face: Normocephalic, atraumatic. ENT: + right ear external canal with mild erythema and swelling, pain with pulling on ear. Left ear normal. Vital Signs: 08:48 BP 103 / 72; Pulse 61; Resp 16; Temp 98.9(TE); Pulse Ox 99% on R/A; Weight 56.7 kg; ss Height 5 ft. 7 in. (170.18 cm); Pain 9/10; 08:48 Body Mass Index 19.58 (56.70 kg, 170.18 cm) MDM: 08:49 Patient medically screened. rn 08:58 Differential diagnosis: otitis externa. Data reviewed: vital signs, nurses notes, and rn as a result, I will discharge patient. Counseling: I had a detailed discussion with the patient and/or guardian regarding: the historical points, exam findings, and any diagnostic results supporting the discharge/admit diagnosis, the need for outpatient follow up, to return to the emergency department if symptoms worsen or persist or if there are any questions or concerns that arise at home. Special discussion: I discussed with the patient/guardian in detail that at this point there is no indication for admission to the hospital. It is understood, however, that if the symptoms persist or worsen the patient needs to return immediately for re-evaluation. Administered Medications: No medications were administered Disposition: 09/14/19 09:02 Discharged to Home. Impression: Otitis externa. - Condition is Stable. - Discharge Instructions: Otitis Externa. - Prescriptions for Ciprodex 0.3- 0.1 % Otic Drops, Suspension - instill 4 drop by OTIC route every 12 hours for 7 days , for ears ONLY; 1 Container. - Medication Reconciliation Form, Thank You Letter, Antibiotic Education, Prescription Opioid Use, Work release form form. - Follow up: Private Physician; When: As needed; Reason: Recheck today's complaints, Re-evaluation by your physician. - Problem is new. - Symptoms have improved. Signatures: Juni Bull MD MD rn Smirch, Shelby, RN RN Alanna Cohen RN RN ph Corrections: (The following items were deleted from the chart) 09:11 09:02 09/14/2019 09:02 Discharged to Home. Impression: Otitis externa. Condition is ph Stable. Discharge Instructions: Otitis Externa. Prescriptions for Ciprodex 0.3-0.1 % Otic Drops, Suspension - instill 4 drop by OTIC route every 12 hours for 7 days , for ears ONLY; 1 Container. and Forms are Medication Reconciliation Form, Thank You Letter, Antibiotic Education, Prescription Opioid Use. Follow up: Private Physician; When: As needed; Reason: Recheck today's complaints, Re-evaluation by your physician. Problem is new. Symptoms have improved. rn
--- NOTE | 2019-09-14 09:12 | ER ---
Nurse's Notes [facility] Name: Kain Short Age: 34 yrs Sex: Male : 1985 Arrival Date: 09/14/2019 Time: 08:48 Bed 20 Private MD: Diagnosis: Otitis externa Presentation: 09/13 08:48 Chief complaint: Patient states: R ear pain since yesterday. Coronavirus screen: ss Proceed with normal triage. Ebola Screen: Patient denies exposure to infectious person. Patient denies travel to an Ebola-affected area in the 21 days before illness onset. Initial Sepsis Screen: Does the patient meet any 2 criteria? No. Patient's initial sepsis screen is negative. Does the patient have a suspected source of infection? No. Patient's initial sepsis screen is negative. Risk Assessment: Do you want to hurt yourself or someone else? Patient reports no desire to harm self or others. Onset of symptoms was September 13, 2019. 08:48 Method Of Arrival: Ambulatory 08:48 Acuity: KARTHIK 5 ss Triage Assessment: 09:11 General: Behavior is. ph Historical: - Allergies: 09:05 Adderall; ss 09:05 Reglan; ss 09:05 tramadol; ss 09:05 Wellbutrin; ss - PMHx: 09:05 Anxiety; Diverticulitis; Kidney stones; mood disorder; ss - PSHx: 09:05 jaw; ss - Immunization history:: Adult Immunizations up to date. - Social history:: Smoking status: Patient denies any tobacco usage or history of. - Family history:: not pertinent. - Hospitalizations: : No recent hospitalization is reported. Screenin:00 Abuse screen: Denies threats or abuse. Denies injuries from another. Nutritional ph screening: No deficits noted. Tuberculosis screening: No symptoms or risk factors identified. Fall Risk None identified. Assessment: 09:00 General: Appears in no apparent distress. comfortable, Behavior is calm, cooperative, ph appropriate for age. Pain: Complains of pain in right ear. Neuro: Level of Consciousness is awake, alert, obeys commands, Oriented to person, place, time, situation. Cardiovascular: Capillary refill < 3 seconds in bilateral fingers Patient's skin is warm and dry. EENT: Reports pain in right ear. Vital Signs: 08:48 BP 103 / 72; Pulse 61; Resp 16; Temp 98.9(TE); Pulse Ox 99% on R/A; Weight 56.7 kg; Height 5 ft. 7 in. (170.18 cm); Pain 9/10; 08:48 Body Mass Index 19.58 (56.70 kg, 170.18 cm) ED Course: 08:48 Patient arrived in ED. am2 08:49 Juni Bull MD is Attending Physician. rn 08:56 Alanna Cohen, RN is Primary Nurse. ph 09:04 Triage completed. ss 09:05 Arm band placed on right wrist. ss 09:10 No provider procedures requiring assistance completed. Patient did not have IV access ph during this emergency room visit. Administered Medications: No medications were administered Outcome: 09:02 Discharge ordered by . rn 09:11 Patient left the ED. ph 09:11 Discharged to home ambulatory. ph 09:11 Condition: good 09:11 Discharge instructions given to patient, Instructed on discharge instructions, follow up and referral plans. medication usage, Demonstrated understanding of instructions, follow-up care, medications, Prescriptions given X 1. Signatures: Juni Bull MD MD rn Smirch, Shelby, RN RN Alanna Cohen RN RN Kathy Whitinganda am2
[2019-09-14 09:16] VITALS: BP 103/72; TEMP 98.9; O2SAT 99
== END 2019-09-14 09:11 | disposition home or self-care (01) ==
LOC: ER 08:47
DX: H60.91 Unspecified otitis externa, right ear (principal); Z88.5 Allergy status to narcotic agent; Z88.6 Allergy status to analgesic agent; Z88.8 Allergy status to other drugs, medicaments and biological substances
CPT/HCPCS: 99282

== ENCOUNTER 2019-11-05 05:17 | Emergency (ER) | payer OTHER ==
--- NOTE | 2019-11-05 06:48 | ER ---
Nurse's Notes [facility] Name: Kain Short Age: 34 yrs Sex: Male : 1985 Arrival Date: 11/05/2019 Time: 05:19 Bed Waiting Private MD: Diagnosis: Periapical abscess without sinus;Nausea and vomiting Presentation: 11/04 05:41 Chief complaint: Patient states: "I've got a bad tooth and it's been hurting, giving me lp1 a headache, and I have not been able to hold down any food"; states pain to bottom right side of mouth. Coronavirus screen: Proceed with normal triage. Ebola Screen: No symptoms or risks identified at this time. Risk Assessment: Do you want to hurt yourself or someone else? Patient reports no desire to harm self or others. Onset of symptoms was November 05, 2019. 05:41 Method Of Arrival: Ambulatory lp1 05:46 Initial Sepsis Screen: Does the patient meet any 2 criteria? No. Patient's initial lp1 sepsis screen is negative. Does the patient have a suspected source of infection? No. Patient's initial sepsis screen is negative. 05:46 Acuity: KARTHIK 3 lp1 Historical: - Allergies: 05:45 Adderall; lp1 05:45 Wellbutrin; lp1 05:45 tramadol; lp1 05:45 Ritalin; lp1 - Home Meds: 05:45 olanzapine 10 mg Oral tab once daily [Active]; hydroxyzine HCl 50 mg Oral tab three lp1 times a day as needed [Active]; - PMHx: 05:45 Anxiety; Diverticulitis; Kidney stones; mood disorder; lp1 - PSHx: 05:45 None; lp1 - Immunization history:: Adult Immunizations up to date. - Social history:: Smoking status: Patient reports the use of cigarette tobacco products, denies chronic smoking, but will smoke occasionally. Screenin:46 Abuse screen: Denies threats or abuse. Denies injuries from another. Nutritional lp1 screening: No deficits noted. Tuberculosis screening: No symptoms or risk factors identified. Fall Risk None identified. Assessment: 06:40 General: Appears in no apparent distress. Behavior is calm, cooperative, appropriate lp1 for age. Pain: Complains of pain in right jaw Pain currently is 10 out of 10 on a pain scale. Neuro: No deficits noted. Cardiovascular: Patient's skin is warm and dry. Respiratory: Respiratory effort is even, unlabored. GI: Reports intolerance of food, nausea. : No signs and/or symptoms were reported regarding the genitourinary system. EENT: Oral mucosa is moist. Poor dentition noted. Derm: Skin is pink, warm \\T\\ dry. Musculoskeletal: No deficits noted. Vital Signs: 05:46 BP 105 / 90; Pulse 69; Resp 18; Temp 98.1(O); Pulse Ox 98% on R/A; Weight 56.7 kg (R); lp1 Height 5 ft. 7 in. (170.18 cm); Pain 10/10; 05:46 Body Mass Index 19.58 (56.70 kg, 170.18 cm) lp1 ED Course: 05:19 Patient arrived in ED. cl3 05:46 Arm band placed on left wrist. lp1 05:48 Triage completed. lp1 06:42 Freda Shah RN is Primary Nurse. lp1 06:43 [facility] jr8 06:43 Baldemar Barraza MD is Attending Physician. jr8 06:43 Patient has correct armband on for positive identification. lp1 07:00 No provider procedures requiring assistance completed. Patient did not have IV access lp1 during this emergency room visit. Administered Medications: 06:50 Drug: TORadol - Ketorolac 15 mg Route: IM; Site: left deltoid; lp1 07:02 Follow up: Response: Medication administered at discharge. lp1 06:50 Drug: Ondansetron (Zofran) 4 mg Route: PO; lp1 07:02 Follow up: Response: Medication administered at discharge. lp1 Outcome: 06:47 Discharge ordered by . jr8 07:00 Discharged to home ambulatory, with significant other. lp1 07:00 Condition: good 07:00 Discharge instructions given to patient, Instructed on discharge instructions, follow up and referral plans. medication usage, Demonstrated understanding of instructions, follow-up care, medications, Prescriptions given X 3. 07:02 Patient left the ED. lp1 Signatures: Freda Shah RN RN lp1 Mak Gan PA PA jr8 Rebeka Saravia cl3
--- NOTE | 2019-11-05 06:48 | EDPHYS ---
Physician Documentation [facility] Name: Kain Short Age: 34 yrs Sex: Male : 1985 Arrival Date: 11/05/2019 Time: 05:19 Bed Waiting Private MD: CAITIE Physician Baldemar Barraza HPI: 11/04 06:48 This 34 yrs old Male presents to ER via Ambulatory with complaints of Dental jr8 pain, Vomiting. 06:48 The patient presents with broken tooth/teeth, pain, redness. The problem is located in jr8 the right jaw. Duration: The symptoms are continuous. Modifying factors: The symptoms are alleviated by nothing, the symptoms are aggravated by chewing, talking. Associated signs and symptoms: Pertinent positives: vomiting. Severity of symptoms: At their worst the symptoms were moderate, in the emergency department the symptoms are unchanged. The patient has experienced a previous episode. The patient has not recently seen a physician. 06:48 Patient stated that he had tooth extracted about a month ago. Still has another bad one jr8 in because it is near jaw plate and his dentist wanted to have him see a oral surgeon. Started to have increased pain with n/v. Historical: - Allergies: 05:45 Adderall; lp1 05:45 Wellbutrin; lp1 05:45 tramadol; lp1 05:45 Ritalin; lp1 - Home Meds: 05:45 olanzapine 10 mg Oral tab once daily [Active]; hydroxyzine HCl 50 mg Oral tab three lp1 times a day as needed [Active]; - PMHx: 05:45 Anxiety; Diverticulitis; Kidney stones; mood disorder; lp1 - PSHx: 05:45 None; lp1 - Immunization history:: Adult Immunizations up to date. - Social history:: Smoking status: Patient reports the use of cigarette tobacco products, denies chronic smoking, but will smoke occasionally. ROS: 06:48 Eyes: Negative for injury, pain, redness, and discharge, Neck: Negative for injury, jr8 pain, and swelling, Cardiovascular: Negative for chest pain, palpitations, and edema, Respiratory: Negative for shortness of breath, cough, wheezing, and pleuritic chest pain, Back: Negative for injury and pain, MS/Extremity: Negative for injury and deformity, Skin: Negative for injury, rash, and discoloration, Neuro: Negative for headache, weakness, numbness, tingling, and seizure. 06:48 ENT: Positive for dental pain, ear pain. 06:48 Abdomen/GI: Positive for nausea, vomiting, Negative for abdominal pain, diarrhea, constipation, abdominal cramps, abdominal distension. Exam: 06:48 Eyes: Pupils equal round and reactive to light, extra-ocular motions intact. Lids and jr8 lashes normal. Conjunctiva and sclera are non-icteric and not injected. Cornea within normal limits. Periorbital areas with no swelling, redness, or edema. ENT: Nares patent. No nasal discharge, no septal abnormalities noted. Tympanic membranes are normal and external auditory canals are clear. Oropharynx with no redness, swelling, or masses, exudates, or evidence of obstruction, uvula midline. Mucous membranes moist. Diffuse poor dentition. Right 1st molar with decay and fracture. Surrounding gingival erythema present without abscess Neck: Trachea midline, no thyromegaly or masses palpated, and no cervical lymphadenopathy. Supple, full range of motion without nuchal rigidity, or vertebral point tenderness. No Meningismus. Cardiovascular: Regular rate and rhythm with a normal S1 and S2. No gallops, murmurs, or rubs. Normal PMI, no JVD. No pulse deficits. Respiratory: Lungs have equal breath sounds bilaterally, clear to auscultation and percussion. No rales, rhonchi or wheezes noted. No increased work of breathing, no retractions or nasal flaring. Abdomen/GI: Soft, non-tender, with normal bowel sounds. No distension or tympany. No guarding or rebound. No evidence of tenderness throughout. Back: No spinal tenderness. No costovertebral tenderness. Full range of motion. Skin: Warm, dry with normal turgor. Normal color with no rashes, no lesions, and no evidence of cellulitis. MS/ Extremity: Pulses equal, no cyanosis. Neurovascular intact. Full, normal range of motion. Neuro: Awake and alert, GCS 15, oriented to person, place, time, and situation. Cranial nerves II-XII grossly intact. Motor strength 5/5 in all extremities. Sensory grossly intact. Cerebellar exam normal. Normal gait. Vital Signs: 05:46 BP 105 / 90; Pulse 69; Resp 18; Temp 98.1(O); Pulse Ox 98% on R/A; Weight 56.7 kg (R); lp1 Height 5 ft. 7 in. (170.18 cm); Pain 10/10; 05:46 Body Mass Index 19.58 (56.70 kg, 170.18 cm) lp1 MDM: 06:43 Data reviewed: vital signs, nurses notes, and as a result, I will discharge patient. jr8 Data interpreted: Pulse oximetry: on room air is 98 %. Interpretation: normal. Counseling: I had a detailed discussion with the patient and/or guardian regarding: the historical points, exam findings, and any diagnostic results supporting the discharge/admit diagnosis, the need for outpatient follow up, a dentist, a family practitioner, to return to the emergency department if symptoms worsen or persist or if there are any questions or concerns that arise at home. ED course: Patient non toxic. No abdominal pain. VS stable. Patient does have open decayed tooth right lower jaw which is consistent with his pain to right jaw and why he is feeling bad. Surrounding gingival erythema noted but without identifiable abscess. Will put him on Abx, pain medicine, and nausea medicine. Told to f/u with dentist and FM. If worse or other symptoms were to evolve to come back to ED for further evaluation . 06:47 Patient medically screened. jr8 Administered Medications: 06:50 Drug: TORadol - Ketorolac 15 mg Route: IM; Site: left deltoid; lp1 07:02 Follow up: Response: Medication administered at discharge. lp1 06:50 Drug: Ondansetron (Zofran) 4 mg Route: PO; lp1 07:02 Follow up: Response: Medication administered at discharge. lp1 Disposition: 17:49 Co-signature as Attending Physician, Baldemar Barraza MD I agree with the assessment and jay plan of care. Disposition: 11/05/19 06:47 Discharged to Home. Impression: Periapical abscess without sinus, Nausea and vomiting. - Condition is Stable. - Discharge Instructions: Dental Abscess, Dental Pain, Nausea and Vomiting, Adult. - Prescriptions for Augmentin 875- 125 mg Oral Tablet - take 1 tablet by ORAL route every 12 hours for 10 days; 20 tablet. Ibuprofen 800 mg Oral Tablet - take 1 tablet by ORAL route every 12 hours As needed take with food; 20 tablet. Zofran 4 mg Oral Tablet - take 1 tablet by ORAL route every 12 hours As needed; 20 tablet. - Medication Reconciliation Form, Thank You Letter, Antibiotic Education, Prescription Opioid Use form. - Follow up: Private Physician; When: 1 week; Reason: Recheck today's complaints, Continuance of care, Re-evaluation by your physician. - Problem is new. - Symptoms are unchanged. Signatures: Baldemar Barraza MD MD cha Pena, Laura RN RN lp1 Mak Gan PA PA jr8 Corrections: (The following items were deleted from the chart) 07:02 06:47 11/05/2019 06:47 Discharged to Home. Impression: Periapical abscess without lp1 sinus; Nausea and vomiting. Condition is Stable. Forms are Medication Reconciliation Form, Thank You Letter, Antibiotic Education, Prescription Opioid Use. Follow up: Private Physician; When: 1 week; Reason: Recheck today's complaints, Continuance of care, Re-evaluation by your physician. Problem is new. Symptoms are unchanged. jr8
[2019-11-05] MEDS ORDERED: KETOROLAC 30 MG/ML INJ ONE (06:59)
[2019-11-05] MEDS ORDERED: ONDANSETRON 4 MG (ODT) TAB ONE (06:59)
[2019-11-05 07:13] VITALS: BP 105/90; TEMP 98.1; O2SAT 98
== END 2019-11-05 07:02 | disposition home or self-care (01) ==
LOC: ER 05:17
DX: K04.7 Periapical abscess without sinus (principal); R11.2 Nausea with vomiting, unspecified; Z72.0 Tobacco use; F41.9 Anxiety disorder, unspecified; Z88.5 Allergy status to narcotic agent
CPT/HCPCS: 96372; 99283

== ENCOUNTER 2020-02-02 15:41 | Emergency (ER) | payer OTHER ==
--- NOTE | 2020-02-02 17:56 | EDPHYS ---
Physician Documentation [facility] Name: Kain Short Age: 34 yrs Sex: Male : 1985 Arrival Date: 02/02/2020 Time: 15:43 Bed 13 Private MD: ED Physician Juni Bull HPI: 02/01 17:49 This 34 yrs old Male presents to ER via Ambulatory with complaints of sore rn throat, chills. 17:49 The patient presents with sore throat. The patient describes throat pain as raw. Onset: rn The symptoms/episode began/occurred. 17:50 Onset: The symptoms/episode began/occurred 5 day(s) ago. Severity of symptoms: At their rn worst the symptoms were mild, in the emergency department the symptoms are unchanged. Modifying factors: The symptoms are alleviated by nothing, the symptoms are aggravated by swallowing. The patient has not experienced similar symptoms in the past. Reports sore throat, swollen tonsils, fever and chills, no cough/sob/runny nose, reports swollen lymph nodes right neck as well. No change in voice, no neck stiffness.. Historical: - Allergies: 16:04 Adderall; em 16:04 Ritalin; em 16:04 Wellbutrin; em 16:04 tramadol; em - PMHx: 16:04 Anxiety; Diverticulitis; Kidney stones; mood disorder; em - PSHx: 16:04 None; em - Immunization history:: Adult Immunizations unknown. - Social history:: Smoking status: Patient reports the use of cigarette tobacco products, denies chronic smoking, but will smoke occasionally. - Family history:: not pertinent. - Hospitalizations: : No recent hospitalization is reported. ROS: 17:50 Constitutional: + fever and chills ENT: + sore throat Cardiovascular: Negative for rn chest pain, palpitations, and edema, Respiratory: Negative for shortness of breath, cough, wheezing, and pleuritic chest pain, Abdomen/GI: Negative for abdominal pain, nausea, vomiting, diarrhea, and constipation, MS/Extremity: Negative for injury and deformity, Skin: Negative for injury, rash, and discoloration, Neuro: Negative for weakness, numbness, tingling, and seizure. Exam: 17:50 Constitutional: This is a well developed, well nourished patient who is awake, alert, rn and in no acute distress. Head/Face: Normocephalic, atraumatic. ENT: + tonsillar hypertrophy with bilateral exudate, no peritonsillar abscess, MMM Neck: trachea midline, + mild tender right cervical LAD Respiratory: No increased work of breathing, no retractions or nasal flaring. Skin: Warm, dry with normal turgor. Normal color with no rashes, no lesions, and no evidence of cellulitis. MS/ Extremity: Pulses equal, no cyanosis. Neurovascular intact. Full, normal range of motion. Equal circumference. Neuro: Awake and alert, GCS 15 Vital Signs: 16:00 BP 93 / 67; Pulse 79; Resp 18; Temp 98.7(O); Pulse Ox 100% on R/A; Weight 68.95 kg; em Height 5 ft. 7 in. (170.18 cm); Pain 9/10; 16:00 Body Mass Index 23.81 (68.95 kg, 170.18 cm) em MDM: 17:44 Patient medically screened. rn 17:50 Differential diagnosis: group A strep tonsillitis, pharyngitis, tonsillitis. Data rn reviewed: vital signs, nurses notes, and as a result, I will discharge patient. 17:54 Counseling: I had a detailed discussion with the patient and/or guardian regarding: the rn historical points, exam findings, and any diagnostic results supporting the discharge/admit diagnosis, the need for outpatient follow up, to return to the emergency department if symptoms worsen or persist or if there are any questions or concerns that arise at home. Special discussion: I discussed with the patient/guardian in detail that at this point there is no indication for admission to the hospital. It is understood, however, that if the symptoms persist or worsen the patient needs to return immediately for re-evaluation. Administered Medications: 18:08 Drug: Augmentin 875 mg Route: PO; ll1 20:26 Follow up: Response: No adverse reaction; RASS: Alert and Calm (0) ll1 18:08 Drug: predniSONE 60 mg Route: PO; ll1 20:26 Follow up: Response: No adverse reaction; RASS: Alert and Calm (0) ll1 Disposition: 02/02/20 17:55 Discharged to Home. Impression: Acute tonsillitis. - Condition is Stable. - Discharge Instructions: Tonsillitis. - Prescriptions for Augmentin 875- 125 mg Oral Tablet - take 1 tablet by ORAL route every 12 hours for 10 days; 20 tablet. - Medication Reconciliation Form, Thank You Letter, Antibiotic Education, Prescription Opioid Use form. - Follow up: Private Physician; When: As needed; Reason: Recheck today's complaints, Re-evaluation by your physician. - Problem is new. - Symptoms are unchanged. Signatures: Dispatcher [employer] [facility] Alivia Lemus, [employer]-C [employer] DRIVER-CkSrinivasa Leyva, RN RN Juni Yan MD MD rn Lewis, Lynsay, RN RN ll1 Corrections: (The following items were deleted from the chart) 17:51 17:39 Urine Dipstick-Ancillary ordered. kb ll1 17:51 17:40 Group A Streptococcus Rapid Sc ordered. [facility] 18:08 17:55 02/02/2020 17:55 Discharged to Home. Impression: Acute tonsillitis. Condition is ll1 Stable. Forms are Medication Reconciliation Form, Thank You Letter, Antibiotic Education, Prescription Opioid Use. Follow up: Private Physician; When: As needed; Reason: Recheck today's complaints, Re-evaluation by your physician. Problem is new. Symptoms are unchanged. rn
--- NOTE | 2020-02-02 17:56 | ER ---
Nurse's Notes [facility] [place], [place] Name: Kain Short Age: 34 yrs Sex: Male : 1985 Arrival Date: 02/02/2020 Time: 15:43 Bed 13 Private MD: Diagnosis: Acute tonsillitis Presentation: 02/01 16:00 Chief complaint: Patient states: sore throat that started on , difficult to em swallow on the right side had sweats, unknown fever, also on Saturday noticed red urine but has cleared up since, denies dysuria, denies belly pain. Coronavirus screen: cough unrelated to allergies, muscle pain, sore throat, Client presents with at least one sign or symptom that may indicate coronavirus-19. Standard/surgical mask placed on the client. Provider contacted for isolation considerations. Ebola Screen: Patient negative for fever greater than or equal to 101.5 degrees Fahrenheit, and additional compatible Ebola Virus Disease symptoms Patient denies exposure to infectious person. Patient denies travel to an Ebola-affected area in the 21 days before illness onset. No symptoms or risks identified at this time. Initial Sepsis Screen: Does the patient meet any 2 criteria? No. Patient's initial sepsis screen is negative. Does the patient have a suspected source of infection? No. Patient's initial sepsis screen is negative. Risk Assessment: Do you want to hurt yourself or someone else?. Onset of symptoms was January 28, 2020. 16:00 Method Of Arrival: Ambulatory em 16:00 Acuity: KARTHIK 3 em Triage Assessment: 17:50 General: Appears uncomfortable, Behavior is calm, cooperative. ll1 Historical: - Allergies: 16:04 Adderall; em 16:04 Ritalin; em 16:04 Wellbutrin; em 16:04 tramadol; em - PMHx: 16:04 Anxiety; Diverticulitis; Kidney stones; mood disorder; em - PSHx: 16:04 None; em - Immunization history:: Adult Immunizations unknown. - Social history:: Smoking status: Patient reports the use of cigarette tobacco products, denies chronic smoking, but will smoke occasionally. - Family history:: not pertinent. - Hospitalizations: : No recent hospitalization is reported. Screenin:45 Abuse screen: Denies threats or abuse. Nutritional screening: No deficits noted. ll1 Tuberculosis screening: No symptoms or risk factors identified. Fall Risk None identified. Total White Fall Scale indicates No Risk (0-24 pts). Assessment: 17:45 General: Appears uncomfortable, Behavior is calm, cooperative. Pain: Complains of pain ll1 in right side of throat Quality of pain is described as aching. Neuro: No deficits noted. Cardiovascular: No deficits noted. Respiratory: No deficits noted. EENT: Oral mucosa is moist. Throat is reddened Reports pain in throat when swallowing. Vital Signs: 16:00 BP 93 / 67; Pulse 79; Resp 18; Temp 98.7(O); Pulse Ox 100% on R/A; Weight 68.95 kg; em Height 5 ft. 7 in. (170.18 cm); Pain 9/10; 16:00 Body Mass Index 23.81 (68.95 kg, 170.18 cm) em ED Course: 15:43 Patient arrived in ED. ag5 16:04 Triage completed. em 16:04 Arm band placed on. em 17:38 Elie Saravia RN is Primary Nurse. ll1 17:44 Juni Bull MD is Attending Physician. rn 17:45 Patient has correct armband on for positive identification. Bed in low position. Call ll1 light in reach. Side rails up X 1. 17:45 No provider procedures requiring assistance completed. Patient did not have IV access ll1 during this emergency room visit. Administered Medications: 18:08 Drug: Augmentin 875 mg Route: PO; ll1 20:26 Follow up: Response: No adverse reaction; RASS: Alert and Calm (0) ll1 18:08 Drug: predniSONE 60 mg Route: PO; ll1 20:26 Follow up: Response: No adverse reaction; RASS: Alert and Calm (0) ll1 Outcome: 17:55 Discharge ordered by . rn 18:08 Patient left the ED. ll1 18:08 Discharged to home ambulatory. ll1 18:08 Condition: stable 18:08 Discharge instructions given to patient, Instructed on discharge instructions, follow up and referral plans. medication usage, Demonstrated understanding of instructions, follow-up care, medications, Prescriptions given X 1. Signatures: Srinivasa Lloyd RN RN Juni Bull MD MD rn [place], [facility] Elie Saravia RN RN 1
[2020-02-02 18:13] VITALS: BP 93/67; TEMP 98.7; O2SAT 100
[2020-02-02] MEDS ORDERED: predniSONE 20 MG TAB ONE (18:16)
[2020-02-02] MEDS ORDERED: AMOX/K CLAV 875 MG TAB ONE (18:16)
== END 2020-02-02 18:08 | disposition home or self-care (01) ==
LOC: ER 15:41
DX: J03.90 Acute tonsillitis, unspecified (principal); F17.210 Nicotine dependence, cigarettes, uncomplicated; Z88.5 Allergy status to narcotic agent; Z88.8 Allergy status to other drugs, medicaments and biological substances
CPT/HCPCS: 99283; J7512

== ENCOUNTER 2020-03-02 11:28 | Emergency (ER) | payer OTHER ==
--- NOTE | 2020-03-02 13:10 | ER ---
Nurse's Notes [facility] [place] Name: Kain Short Age: 34 yrs Sex: Male : 1985 Arrival Date: 03/02/2020 Time: 11:29 Bed 26 Private MD: Diagnosis: Other specified disorders of teeth and supporting structures Presentation: 03/02 12:05 Chief complaint: Patient states: Toothache since last night. L upper tooth. Coronavirus ca1 screen: Client denies travel out of the [place] in the last 14 days. At this time, the client does not indicate any symptoms associated with coronavirus-19. The client reports previous COVID testing was negative. Date of collection: December 2019. Ebola Screen: Patient negative for fever greater than or equal to 101.5 degrees Fahrenheit, and additional compatible Ebola Virus Disease symptoms Patient denies exposure to infectious person. Patient denies travel to an Ebola-affected area in the 21 days before illness onset. No symptoms or risks identified at this time. Initial Sepsis Screen: Does the patient meet any 2 criteria? No. Patient's initial sepsis screen is negative. Does the patient have a suspected source of infection? No. Patient's initial sepsis screen is negative. Risk Assessment: Do you want to hurt yourself or someone else? Patient reports no desire to harm self or others. Onset of symptoms was March 02, 2020. 12:05 Method Of Arrival: Ambulatory ca1 12:05 Acuity: KARTHIK 5 ca1 Triage Assessment: 13:00 General: Appears in no apparent distress. Behavior is calm, cooperative. iw Historical: - Allergies: 12:07 Adderall; ca1 12:07 tramadol; ca1 12:07 Wellbutrin; ca1 12:07 Ritalin; ca1 - Home Meds: 12:07 hydroxyzine HCl 50 mg Oral tab three times a day as needed [Active]; olanzapine 10 mg ca1 Oral tab once daily [Active]; Zoloft Oral [Active]; - PMHx: 12:07 Anxiety; Diverticulitis; Kidney stones; mood disorder; ca1 - PSHx: 12:07 Jaw surgery; ca1 - Immunization history:: Adult Immunizations up to date, Flu vaccine is not up to date. - Social history:: Smoking status: Patient reports the use of cigarette tobacco products, smokes one-half pack cigarettes per day. Screenin:19 Abuse screen: Denies threats or abuse. Denies injuries from another. Nutritional iw screening: No deficits noted. Tuberculosis screening: No symptoms or risk factors identified. Fall Risk None identified. Assessment: 12:50 General: Appears in no apparent distress. Behavior is calm, cooperative. Pain: iw Complains of pain in upper left second molar (#15). Neuro: Level of Consciousness is awake, alert, obeys commands, Oriented to person, place, time, situation. Cardiovascular: Patient's skin is warm and dry. Respiratory: Respiratory effort is even, unlabored, Respiratory pattern is regular, symmetrical. EENT: Derm: Skin is intact, is healthy with good turgor. Musculoskeletal: Range of motion: intact in all extremities. Vital Signs: 12:05 BP 110 / 75; Pulse 69; Resp 16 S; Temp 97(TE); Pulse Ox 97% on R/A; Weight 67.13 kg ca1 (R); Height 5 ft. 7 in. (170.18 cm) (R); Pain 7/10; 12:05 Body Mass Index 23.18 (67.13 kg, 170.18 cm) ca1 ED Course: 11:29 Patient arrived in ED. ag5 12:06 Triage completed. ca1 12:07 Arm band placed on right wrist. ca1 12:50 Patient has correct armband on for positive identification. iw 12:53 Baldemar Lucia PA is PHCP. cp 12:53 Baldemar Barraza MD is Attending Physician. cp 13:19 Tanya Tripathi RN is Primary Nurse. iw 13:19 No provider procedures requiring assistance completed. Patient did not have IV access iw during this emergency room visit. Administered Medications: No medications were administered Outcome: 13:09 Discharge ordered by . cp 13:19 Discharged to home ambulatory. iw 13:19 Condition: good 13:19 Discharge instructions given to patient, Instructed on discharge instructions, follow up and referral plans. medication usage, Demonstrated understanding of instructions, follow-up care, medications, Prescriptions given X 2. 13:20 Patient left the ED. iw Signatures: Tanya Tripathi RN RN iw Baldemar Lucia PA PA cp Acob, Cheryl, RN RN ca1 Juan Yokr ag5
--- NOTE | 2020-03-02 13:10 | EDPHYS ---
Physician Documentation [facility] Name: Kain Short Age: 34 yrs Sex: Male : 1985 Arrival Date: 03/02/2020 Time: 11:29 Bed 26 Private MD: CAITIE Physician Baldemar Barraza HPI: 03/02 13:04 This 34 yrs old Male presents to ER via Ambulatory with complaints of cp Toothache. 13:04 The patient presents with pain. The problem is located in the left upper back molar. cp Onset: The symptoms/episode began/occurred yesterday. Duration: The symptoms are continuous, and are unchanged since they started. Associated signs and symptoms: Pertinent negatives: chills, fever, inability to eat. Severity of symptoms: in the emergency department the symptoms are unchanged, despite home interventions. Historical: - Allergies: 12:07 Adderall; ca1 12:07 tramadol; ca1 12:07 Wellbutrin; ca1 12:07 Ritalin; ca1 - Home Meds: 12:07 hydroxyzine HCl 50 mg Oral tab three times a day as needed [Active]; olanzapine 10 mg ca1 Oral tab once daily [Active]; Zoloft Oral [Active]; - PMHx: 12:07 Anxiety; Diverticulitis; Kidney stones; mood disorder; ca1 - PSHx: 12:07 Jaw surgery; ca1 - Immunization history:: Adult Immunizations up to date, Flu vaccine is not up to date. - Social history:: Smoking status: Patient reports the use of cigarette tobacco products, smokes one-half pack cigarettes per day. ROS: 13:05 Eyes: Negative for injury, pain, redness, and discharge. cp 13:05 Constitutional: Negative for body aches, chills, fever. 13:05 ENT: Positive for dental pain, Negative for drainage from ear(s), ear pain, sore throat, difficulty swallowing, difficulty handling secretions. 13:05 Respiratory: Negative for cough, shortness of breath, wheezing. 13:05 Skin: Negative for rash. 13:05 Neuro: Negative for headache. 13:05 All other systems are negative. Exam: 13:06 Head/Face: Normocephalic, atraumatic. cp 13:06 Constitutional: The patient appears in no acute distress, alert, awake, non-toxic, well developed, well nourished. 13:06 Eyes: Periorbital structures: appear normal, Conjunctiva: normal, no exudate, no injection, Lids and lashes: appear normal, bilaterally. 13:06 ENT: External ear(s): are unremarkable, Ear canal(s): are normal, clear, TM's: dullness, bilaterally, Nose: is normal, Mouth: Lips: moist, Oral mucosa: moist, Posterior pharynx: Airway: no evidence of obstruction, patent, Dental exam: abscess, is not appreciated, dental caries, that is moderate, diffusely, pain, that is mild, specifically in the upper left second molar (#15), Voice: is normal. 13:06 Neck: ROM/movement: is normal, is supple, without pain, no range of motions limitations, Lymph nodes: no appreciated lymphadenopathy. Vital Signs: 12:05 BP 110 / 75; Pulse 69; Resp 16 S; Temp 97(TE); Pulse Ox 97% on R/A; Weight 67.13 kg ca1 (R); Height 5 ft. 7 in. (170.18 cm) (R); Pain 7/10; 12:05 Body Mass Index 23.18 (67.13 kg, 170.18 cm) ca1 MDM: 13:03 Patient medically screened. jay 13:07 Differential diagnosis: dental caries, gingivitis, dental abscess, pericoronitis, cp gingivostomatitis. 13:09 Data reviewed: vital signs, nurses notes, and as a result, I will discharge patient. 13:09 Counseling: I had a detailed discussion with the patient and/or guardian regarding: the cp historical points, exam findings, and any diagnostic results supporting the discharge/admit diagnosis, the need for outpatient follow up, for definitive care, a dentist. Administered Medications: No medications were administered Disposition: 18:21 Co-signature as Attending Physician, Baldemar Barraza MD I agree with the assessment and [place] [facility] plan of care. Disposition: 03/02/20 13:09 Discharged to Home. Impression: Other specified disorders of teeth and supporting structures. - Condition is Stable. - Discharge Instructions: Dental Pain. - Prescriptions for Amoxicillin 875 mg Oral Tablet - take 1 tablet by ORAL route every 12 hours for 10 days; 20 tablet. Ibuprofen 800 mg Oral Tablet - take 1 tablet by ORAL route every 8 hours As needed take with food; 30 tablet. - Medication Reconciliation Form, Thank You Letter, Antibiotic Education, Prescription Opioid Use form. - Follow up: Private Physician; When: 1 - 2 days; Reason: Recheck today's complaints. - Problem is new. - Symptoms have improved. Signatures: Baldemar Barraza MD MD cha Williams, Irene, RN RN Baldemar Arredondo PA PA cp Carla Wahl RN RN ca1 Corrections: (The following items were deleted from the chart) 13:20 13:09 03/02/2020 13:09 Discharged to Home. Impression: Other specified disorders of iw teeth and supporting structures. Condition is Stable. Forms are Medication Reconciliation Form, Thank You Letter, Antibiotic Education, Prescription Opioid Use. Follow up: Private Physician; When: 1 - 2 days; Reason: Recheck today's complaints. Problem is new. Symptoms have improved. cp 03/03 06:59 03/02 13:05 Differential diagnosis: dental caries, gingivitis, dental abscess, cp pericoronitis, gingivostomatitis, cp
[2020-03-02 13:33] VITALS: BP 110/75; TEMP 97; O2SAT 97
== END 2020-03-02 13:20 | disposition home or self-care (01) ==
LOC: ER 11:28
DX: K08.89 Other specified disorders of teeth and supporting structures (principal); F41.9 Anxiety disorder, unspecified; F17.210 Nicotine dependence, cigarettes, uncomplicated; Z88.5 Allergy status to narcotic agent; Z88.8 Allergy status to other drugs, medicaments and biological substances
CPT/HCPCS: 99282

== ENCOUNTER 2020-10-23 18:56 | Emergency (ER) | payer OTHER ==
--- NOTE | 2020-10-23 20:45 | ER ---
Nurse's Notes [facility] Name: Kain Short Age: 35 yrs Sex: Male : 1985 Arrival Date: 10/23/2020 Time: 18:57 Bed 24 Private MD: Diagnosis: Pain in left toe(s) Presentation: 10/23 19:43 Chief complaint: Patient states: "I think I broke my pinky toe"; Reports running around 1 hotel room, and stubbed left 5th toe on bottom of bed; slight bruising to left 5th toe noted. Coronavirus screen: Client denies travel out of the [place] in the last 14 days. At this time, the client does not indicate any symptoms associated with coronavirus-19. Ebola Screen: No symptoms or risks identified at this time. Risk Assessment: Do you want to hurt yourself or someone else? Patient reports no desire to harm self or others. Onset of symptoms was October 20, 2020. 19:43 Method Of Arrival: Ambulatory lp1 19:43 Acuity: KARTHIK 4 lp1 19:45 Initial Sepsis Screen: Does the patient meet any 2 criteria? No. Patient's initial lp1 sepsis screen is negative. Does the patient have a suspected source of infection? No. Patient's initial sepsis screen is negative. Historical: - Allergies: 19:45 Adderall; lp1 19:45 Ritalin; lp1 19:45 tramadol; lp1 19:45 Wellbutrin; lp1 - Home Meds: 19:45 None [Active]; lp1 - PMHx: 19:45 Anxiety; Diverticulitis; Kidney stones; mood disorder; lp1 - PSHx: 19:45 Jaw surgery; lp1 - Immunization history:: Adult Immunizations unknown. - Social history:: Smoking status: Patient reports the use of cigarette tobacco products, smokes one-half pack cigarettes per day. Screenin:47 Abuse screen: Denies threats or abuse. Denies injuries from another. Nutritional lp1 screening: No deficits noted. Tuberculosis screening: No symptoms or risk factors identified. Fall Risk None identified. Assessment: 21:06 General: Appears in no apparent distress. Behavior is calm, cooperative. Pain: bb Complains of pain in left foot. Neuro: Level of Consciousness is awake, alert, obeys commands, Oriented to person, place, time, situation. Cardiovascular: No deficits noted. Respiratory: Respiratory effort is even, unlabored, Respiratory pattern is regular. GI: No signs and/or symptoms were reported involving the gastrointestinal system. Derm: Skin is pink, warm \\T\\ dry. Musculoskeletal: Circulation, motion, and sensation intact. Reports pain in left foot. 21:07 Reassessment: Patient is alert, oriented x 3, equal unlabored respirations, skin bb warm/dry/pink. pt verbalized understanding of and agrees to plan of care discharge instructions given pt ambulated with steady gait to exit. Vital Signs: 19:45 BP 110 / 75; Pulse 64; Resp 16; Temp 97.6(TE); Pulse Ox 99% on R/A; Weight 69.85 kg lp1 (R); Height 5 ft. 7 in. (170.18 cm); Pain 9/10; 20:56 BP 112 / 83; Pulse 57; Resp 16; Temp 97.9; Pulse Ox 98% on R/A; dh4 19:45 Body Mass Index 24.12 (69.85 kg, 170.18 cm) lp1 ED Course: 18:57 Patient arrived in ED. am2 19:44 Triage completed. lp1 19:45 Arm band placed on right wrist. lp1 19:51 Alivia Lemus FNP-C is [facility]. kb 19:51 Adwoa Sullivan MD is Attending Physician. kb 20:45 Foot Left 3 View XRAY In Process Unspecified. EDMS 21:06 Gina Garcia, RN is Primary Nurse. bb 21:06 Patient has correct armband on for positive identification. Call light in reach. bb 21:08 left 4th and 5th toes alisson taped. bb 21:08 No provider procedures requiring assistance completed. Patient did not have IV access bb during this emergency room visit. Administered Medications: No medications were administered Outcome: 20:44 Discharge ordered by . kb 21:08 Discharged to home ambulatory. bb 21:08 Condition: stable 21:08 Discharge instructions given to patient, Instructed on discharge instructions, follow up and referral plans. Demonstrated understanding of instructions, follow-up care. 21:09 Patient left the ED. bb Signatures: Dispatcher [employer] EDCA Alivia Lemus FNP-C FNP-Gina Downey, RN RN bb Freda Shah RN RN lp1 Veronique Whiting am2 Rian Sparks [facility]
--- NOTE | 2020-10-23 20:45 | EDPHYS ---
Physician Documentation [facility] Name: Kain Short Age: 35 yrs Sex: Male : 1985 Arrival Date: 10/23/2020 Time: 18:57 Bed 24 Private MD: ED Physician Adwoa Sullivan HPI: 10/23 20:24 This 35 yrs old Male presents to ER via Ambulatory with complaints of Toe kb Injury. 20:25 The patient presents with pain, that is acute. The complaints affect the left foot. kb Context: The problem was sustained at home, resulted from the patient kicking, furniture, the patient can fully bear weight, the patient is able to ambulate. Onset: The symptoms/episode began/occurred 3 day(s) ago. Modifying factors: The symptoms are alleviated by nothing, the symptoms are aggravated by weight bearing. Associated signs and symptoms: The patient has no apparent associated signs or symptoms. Severity of symptoms: At their worst the symptoms were mild, in the emergency department the symptoms are unchanged. The patient has not experienced similar symptoms in the past. The patient has not recently seen a physician. Historical: - Allergies: 19:45 Adderall; lp1 19:45 Ritalin; lp1 19:45 tramadol; lp1 19:45 Wellbutrin; lp1 - Home Meds: 19:45 None [Active]; lp1 - PMHx: 19:45 Anxiety; Diverticulitis; Kidney stones; mood disorder; lp1 - PSHx: 19:45 Jaw surgery; lp1 - Immunization history:: Adult Immunizations unknown. - Social history:: Smoking status: Patient reports the use of cigarette tobacco products, smokes one-half pack cigarettes per day. ROS: 20:19 Constitutional: Negative for fever, chills, and weight loss, Skin: Negative for injury, kb rash, and discoloration. 20:19 MS/extremity: Positive for pain, tenderness. Exam: 20:19 Constitutional: This is a well developed, well nourished patient who is awake, alert, kb and in no acute distress. Head/Face: Normocephalic, atraumatic. ENT: Moist Mucous membranes Respiratory: Respirations even and unlabored. No increased work of breathing, no retractions or nasal flaring. Skin: Warm, dry with normal turgor. Normal color. Neuro: Awake and alert, GCS 15, oriented to person, place, time, and situation. Moves all extremities. Normal gait. Psych: Awake, alert, with orientation to person, place and time. Behavior, mood, and affect are within normal limits. 20:19 Musculoskeletal/extremity: Extremities: grossly normal except: noted in the left fifth toe: pain, tenderness, ROM: intact in all extremities, Circulation is intact in all extremities. Sensation intact. Weight bearing: able to fully bear weight. Vital Signs: 19:45 BP 110 / 75; Pulse 64; Resp 16; Temp 97.6(TE); Pulse Ox 99% on R/A; Weight 69.85 kg lp1 (R); Height 5 ft. 7 in. (170.18 cm); Pain 9/10; 20:56 BP 112 / 83; Pulse 57; Resp 16; Temp 97.9; Pulse Ox 98% on R/A; dh4 19:45 Body Mass Index 24.12 (69.85 kg, 170.18 cm) lp1 MDM: 19:56 Patient medically screened. kb 20:12 Data reviewed: vital signs, nurses notes. Data interpreted: Pulse oximetry: on room air kb is 99 %. Interpretation: normal. Counseling: I had a detailed discussion with the patient and/or guardian regarding: the historical points, exam findings, and any diagnostic results supporting the discharge/admit diagnosis, radiology results, the need for outpatient follow up, a family practitioner, to return to the emergency department if symptoms worsen or persist or if there are any questions or concerns that arise at home. 10/23 19:52 Order name: Foot Left 3 View XRAY; Complete Time: 09:04 kb 10/23 20:45 Order name: [facility]. Order: alisson tape fourth and fifth digits; Complete Time: 20:51 kb Administered Medications: No medications were administered Disposition: 10/23/20 20:44 Discharged to Home. Impression: Pain in left toe(s). - Condition is Stable. - Discharge Instructions: Toe Fracture, [id number]. - Medication Reconciliation Form, Thank You Letter, Antibiotic Education, Prescription Opioid Use form. - Follow up: Emergency Department; When: As needed; Reason: Worsening of condition. Follow up: Private Physician; When: 2 - 3 days; Reason: Recheck today's complaints, Continuance of care, Re-evaluation by your physician. Signatures: Dispatcher [employer] Alivia Garsia, DILAN-Gina Nguyen, RN RN bb Freda Shah RN RN lp1 Corrections: (The following items were deleted from the chart) 20:45 20:45 Misc. Order ordered. kb kb 21:09 20:44 10/23/2020 20:44 Discharged to Home. Impression: Pain in left toe(s). Condition bb is Stable. Forms are Medication Reconciliation Form, Thank You Letter, Antibiotic Education, Prescription Opioid Use. Follow up: Emergency Department; When: As needed; Reason: Worsening of condition. Follow up: Private Physician; When: 2 - 3 days; Reason: Recheck today's complaints, Continuance of care, Re-evaluation by your physician. kb
--- NOTE | 2020-10-23 20:58 | RAD REPORT ---
EXAM DESCRIPTION: RAD - Foot Left 3 View - 10/23/2020 8:45 pm CLINICAL HISTORY: PAIN COMPARISON: No comparisons FINDINGS: Transverse lucency involves the base of the proximal phalanx of the fifth toe, compatible with fracture.
[2020-10-23 21:23] VITALS: BP 112/83; TEMP 97.9; O2SAT 98
== END 2020-10-23 21:09 | disposition home or self-care (01) ==
LOC: ER 18:56
DX: M79.675 Pain in left toe(s) (principal); F17.210 Nicotine dependence, cigarettes, uncomplicated; Z88.5 Allergy status to narcotic agent; Z88.8 Allergy status to other drugs, medicaments and biological substances
CPT/HCPCS: 99283

== ENCOUNTER 2020-12-18 16:40 | Emergency (ER) | payer OTHER ==
--- NOTE | 2020-12-18 17:22 | ER ---
Nurse's Notes [facility] Name: Kain Short Age: 35 yrs Sex: Male : 1985 Arrival Date: 12/18/2020 Time: 16:44 Bed Waiting Private MD: Diagnosis: Encounter for screening, unspecified Presentation: 12/18 17:07 Chief complaint: Patient states: I was exposed and want to be tested for COVID, denies jl7 symptoms. Coronavirus screen: Client denies travel out of the [place] in the last 14 days. At this time, the client does not indicate any symptoms associated with coronavirus-19. Ebola Screen: No symptoms or risks identified at this time. Initial Sepsis Screen: Does the patient meet any 2 criteria? No. Patient's initial sepsis screen is negative. Does the patient have a suspected source of infection? No. Patient's initial sepsis screen is negative. Risk Assessment: Do you want to hurt yourself or someone else? Patient reports no desire to harm self or others. Onset of symptoms is unknown. 17:07 Method Of Arrival: Ambulatory jl7 17:07 Acuity: KARTHIK 5 jl7 Triage Assessment: 17:08 General: Appears in no apparent distress. comfortable, Behavior is calm, cooperative. jl7 Pain: Denies pain. Historical: - Allergies: 17:08 Adderall; jl7 17:08 Ritalin; jl7 17:08 tramadol; jl7 17:08 Wellbutrin; jl7 - PMHx: 17:08 Anxiety; Diverticulitis; Kidney stones; mood disorder; jl7 - Immunization history:: Adult Immunizations not up to date, Client reports having NOT received the Covid vaccine. - Social history:: Smoking status: Patient reports the use of cigarette tobacco products. Vital Signs: 17:07 BP 96 / 64; Pulse 66; Resp 14; Temp 98.7; Pulse Ox 99% ; jl7 ED Course: 16:44 Patient arrived in ED. ds1 17:05 Alivia Lemus FNP-C is [facility]. kb 17:05 Baldemar Barraza MD is Attending Physician. kb 17:08 Triage completed. jl7 17:08 Arm band placed on right wrist. jl7 Administered Medications: No medications were administered Outcome: 17:22 Discharge ordered by . kb 17:25 Patient left the ED. eb Signatures: Alivia Lemus, [employer]-C [employer]-Ckb Ashtyn Samayoa ds1 Nathaniel Ball, EDGAR RN jl7 Kathryn Loredo
--- NOTE | 2020-12-18 17:22 | EDPHYS ---
Physician Documentation [facility] Name: Kain Short Age: 35 yrs Sex: Male : 1985 Arrival Date: 12/18/2020 Time: 16:44 Bed Waiting Private MD: CAITIE Physician Baldemar Barraza HPI: 12/18 17:07 This 35 yrs old Male presents to ER via Unassigned with complaints of kb Fever-Covid Test. 17:07 "I want to get COVID tested. I was around my friend that was around his child that had kb covid so I just wanted to make sure I didn't have it." Pt denies any symptoms. . The patient has not experienced similar symptoms in the past. The patient has not recently seen a physician. Historical: - Allergies: 17:08 Adderall; jl7 17:08 Ritalin; jl7 17:08 tramadol; jl7 17:08 Wellbutrin; jl7 - PMHx: 17:08 Anxiety; Diverticulitis; Kidney stones; mood disorder; jl7 - Immunization history:: Adult Immunizations not up to date, Client reports having NOT received the Covid vaccine. - Social history:: Smoking status: Patient reports the use of cigarette tobacco products. ROS: 17:06 Constitutional: Negative for fever, chills, and weight loss. kb 17:06 All other systems are negative. Exam: 17:06 Constitutional: This is a well developed, well nourished patient who is awake, alert, kb and in no acute distress. Head/Face: Normocephalic, atraumatic. ENT: Moist Mucous membranes Respiratory: Respirations even and unlabored. No increased work of breathing, no retractions or nasal flaring. Skin: Warm, dry with normal turgor. Normal color. MS/ Extremity: Pulses equal, no cyanosis. Neurovascular intact. Full, normal range of motion. Neuro: Awake and alert, GCS 15, oriented to person, place, time, and situation. Moves all extremities. Normal gait. Psych: Awake, alert, with orientation to person, place and time. Behavior, mood, and affect are within normal limits. Vital Signs: 17:07 BP 96 / 64; Pulse 66; Resp 14; Temp 98.7; Pulse Ox 99% ; jl7 MDM: 17:06 Patient medically screened. kb 17:06 Data reviewed: vital signs, nurses notes. Data interpreted: Pulse oximetry: on room air kb is 99 %. Interpretation: normal. Counseling: I had a detailed discussion with the patient and/or guardian regarding: the historical points, exam findings, and any diagnostic results supporting the discharge/admit diagnosis, the need for outpatient follow up, a family practitioner, to return to the emergency department if symptoms worsen or persist or if there are any questions or concerns that arise at home. Administered Medications: No medications were administered Disposition: 17:06 Encounter for COVID test - asymptomatic. kb 12/19 07:37 Co-signature as Attending Physician, Baldemar Barraza MD I agree with the assessment and jay plan of care. Disposition Summary: 12/18/20 17:22 Discharge Ordered Location: Home kb Condition: Stable kb Diagnosis - Encounter for screening, unspecified kb Followup: kb - With: Emergency Department - When: As needed - Reason: Worsening of condition Followup: kb - With: Private Physician - When: 2 - 3 days - Reason: Recheck today's complaints, Continuance of care, Re-evaluation by your physician Forms: - Medication Reconciliation Form kb - Thank You Letter kb - Antibiotic Education kb - Prescription Opioid Use kb Signatures: Alivia Lemus, [employer] WORKER LEADER-C F[employer] WORKER LEADER-Baldemar Ching MD MD cha Leal, Jahala, RN RN jl7
== END 2020-12-18 17:25 | disposition home or self-care (01) ==
LOC: ER 16:40
DX: Z20.822 Contact with and (suspected) exposure to COVID-19 (principal)
CPT/HCPCS: 99281